=== PATIENT | male | born 1960 | race Caucasian/White ===

== ENCOUNTER 2017-08-24 08:07 | Emergency (ER) | payer BC, OTHER ==
[2017-08-24 08:26] VITALS: BP 149/88
--- NOTE | 2017-08-24 08:51 | UC ---
Upper Extremity HPI - HPI Summary HPI Summary: Kaitlynn De Paz, scribed for attending Elda Garrido MD. Pt is a 56 y/o M who presents to [facility] c/o left wrist pain s/p fall. On August 15 (9 days ago) the pt slipped on rocks and fell on an outstretched left hand. Reports that the wrist "got bent back" during fall. Has been taking Ibuprofen and applying ice to the injury. Associated pain is moderate, ranked 6/ 10 on triage and aggravated by applying pressure (trying to get up from sitting ) and with movement. Notes mild swelling, beginning 2 days after fall, which did not require he remove his wedding band. Denies any paresthesia or weakness in the hand. Denies any other injuries as a result of the fall and has no prior injuries to the left wrist. Pt is ambidextrous, using his right hand to write and for sports, with his left being used for eating and many daily activities. Confirms he has a PCP. Patient medications and allergies reviewed this visit. - History of Current Complaint Chief Complaint: UCUpperExtremity Stated Complaint: WRIST INJURY Time Seen by Provider: 08/24/17 08:46 Hx Obtained From: Patient Onset/Duration: Still Present, Other - Fell 9 days ago Severity Currently: Moderate Pain Intensity: 6 Pain Scale Used: 0-10 Numeric Location Of Pain: Is Discrete @ - Left wrist Aggravating Factor(s): Movement, Other - Pressure Associated Signs And Symptoms: Positive: Swelling Related History: Occupational Injury, Other: - Ambidextrous - Allergies/Home Medications Allergies/Adverse Reactions: Allergies Allergy/AdvReac Type Severity Reaction Status Date / Time Prosthetic in ear Allergy See Comment Uncoded 08/24/17 08:30 PMH/Surg Hx/FS Hx/Imm Hx - Additional Past Medical History Additional PMH: PMHx: DVT Negative PMHx: HTN, COPD, DM, Thyroid disease, Asthma Previously Healthy: Yes Other History Of: Negative For: HIV, Hepatitis B, Hepatitis C, Anticoagulant Therapy - Surgical History Surgical History: Yes Surgery Procedure, Year, and Place: LEFT LEG-DVT. RIGHT EAR - Family History Known Family History: Positive: Cardiac Disease, Hypertension - Social History Alcohol Use: Daily Alcohol Amount: 1-2 GLASSES OF WINE Substance Use Type: None Smoking Status (MU): Never Smoked Tobacco - Immunization History Most Recent Influenza Vaccination: FALL 2016 Review of Systems Constitutional: Negative Skin: Other - Mild swelling Eyes: Negative ENT: Negative Respiratory: Negative Cardiovascular: Negative Gastrointestinal: Negative Genitourinary: Negative Motor: Negative Neurovascular: Negative Musculoskeletal: Arthralgia - L wrist pain Neurological: Negative Psychological: Negative All Other Systems Reviewed And Are Negative: Yes - Comments Additional Review of Systems Comments: NEGATIVE: Paresthesia and weakness Physical Exam - Summary Physical Exam Summary: Vital Signs Reviewed: Yes A+Ox3, no distress Eyes: Conjunctiva Clear ENT: Hearing grossly normal neck: supple Respiratory: Positive: No respiratory distress, No accessory muscle use Cardiovascular: skin color reflect adequate perfusion Musculoskeletal Exam: STRAUSS x 4 without difficulty + flex/ext elbow + pronate/ supinate left elbow + flex/ext wrist no snuff box pain no tenderness carpals, metacarpals, phalanges mild discomfort medial dorsum wrist with direct palp Neurological: Positive: Alert, ambulatory without difficulty + thumb up, a ok, finger spread, finger cross + gross sensation Psychological: Positive: Normal Response To Family Skin: Positive: no rash, no ecchymosis, no edema Triage Information Reviewed: Yes Vital Signs: Initial Vital Signs Temp 97.1 F 08/24/17 08:22 Pulse 67 08/24/17 08:22 Resp 18 08/24/17 08:22 BP 149/88 08/24/17 08:22 Pulse Ox 100 08/24/17 08:22 Diagnostics - Radiology Wrist XR Xray Interpretation: No Acute Changes - NO ACUTE OSSEOUS INJURY. IF SYMPTOMS PERSIST, RECOMMEND REPEAT IMAGING. Physician reviewed this radiology report. Radiology Interpretation Completed By: Radiologist Upper Extremity Course/Dx - Course Course Of Treatment: Patient medications and allergies reviewed this visit. Blood pressure noted and patient informed to follow up with PCP. Pt with left wrist pain s/p fall 1 week ago. discomfort will full extension and flexion of wrist pain dorsum, medial aspect. no edema. no abraison. motrin/apap. ice. splint. sports med f/u - Differential Dx/Diagnosis Provider Diagnoses: left wrist sprain Discharge - Sign-Out/Discharge Documenting (check all that apply): Patient Departure - Discharge - Discharge Plan Condition: Stable Disposition: HOME Patient Education Materials: Wrist Sprain (ED) Referrals: [facility] [Provider Group] Darci Lynch MD [Primary Care Provider] - 08/28/17 (Call for follow up on Monday or Monday. ) Additional Instructions: -apply ice (20 min at a time) 2 times a day for swellnig or pain --Okay to alternate ibuprofen (Advil, Motrin) 600mg and Tylenol every 3 hours for pain. Take with food. Do NOT take for more than 4-5 days. - wear splint as much as possible until your follow-up appointment - Contact your primary care provider or the sports medicine provider to schedule a follow-up appointment on Monday or Monday - you have also been given a referral to physical therapy. Okay to schedule a follow-up for ongoing pain - Billing Disposition and Condition Condition: STABLE Disposition: Home
--- NOTE | 2017-08-24 08:51 | RAD ---
HISTORY: pain s/p fall COMPARISONS: None VIEWS: 3, Frontal, lateral, and oblique views of the left wrist FINDINGS: BONE DENSITY: Normal. BONES: There is no displaced fracture. JOINTS: There is no arthropathy. ALIGNMENT: There is no dislocation. SOFT TISSUES: Unremarkable. OTHER FINDINGS: None. IMPRESSION: NO ACUTE OSSEOUS INJURY. IF SYMPTOMS PERSIST, RECOMMEND REPEAT IMAGING.
== END 2017-08-24 09:47 | disposition home or self-care (01) ==
LOC: UCEAST 08:07
DX: S63.502A Unspecified sprain of left wrist, initial encounter (principal); Z91.048 Other nonmedicinal substance allergy status; W19.XXXA Unspecified fall, initial encounter; Y92.9 Unspecified place or not applicable
CPT/HCPCS: 99211; G0463

== ENCOUNTER 2018-09-08 08:07 | Emergency (ER) | payer BC ==
--- NOTE | 2018-09-08 08:19 | ED ---
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 He was lying in bed sleeping when he suddenly began to feel severe abd pain. He rates his pain intensity a 7/10. 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 He mentions that he was able to urinate this morning and has not taken any medication at home for the pain. He also reports intermittent nausea but denies any vomiting. No alleviating or aggravating factors noted. 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 - History of Current Complaint Stated Complaint: SEVERE ABDOMINAL PAIN RIGHT SIDE PER PT Hx Obtained From: Patient Onset/Duration: Sudden Onset, Lasting Hours, Still Present Timing: Constant, Lasting Hours Severity Initially: Severe Severity Currently: Severe Pain Intensity: 7 Pain Scale Used: 0-10 Numeric Location: Discrete At: RLQ Aggravating Factor(s): Nothing Alleviating Factor(s): Nothing Associated Signs And Symptoms: Positive: Nausea. Negative: Fever, Vomiting - Allergies/Home Medications Allergies/Adverse Reactions: Allergies Allergy/AdvReac Type Severity Reaction Status Date / Time Prosthetic in ear Allergy See Comment Uncoded 09/08/18 08:11 Home Medications: Home Medications Neomycin/Polymyxin B/Hydrocort [Ijakguwa-Hcnttcfec-Bv Ear Susp] 4 drop RIGHT EAR QID 09/08/18 [History Confirmed 09/08/18] PMH/Surg Hx/FS Hx/Imm Hx Endocrine/Hematology History: Denies: Hx Anticoagulant Therapy, Hx Diabetes, Hx Thyroid Disease Cardiovascular History: Denies: Hx Congestive Heart Failure, Hx Deep Vein Thrombosis, Hx Hypertension , Hx Myocardial Infarction, Hx Pacemaker/ICD Respiratory History: Denies: Hx Asthma, Hx Chronic Obstructive Pulmonary Disease (COPD), Hx Lung Cancer, Hx Pneumonia, Hx Pulmonary Embolism GI History: Reports: Other GI Disorders - Hernia Denies: Hx Gall Bladder Disease, Hx Gastrointestinal Bleed, Hx Ulcer, Hx Urosepsis History: Denies: Hx Kidney Stones, Hx Renal Disease Neurological History: Denies: Hx Dementia, Hx Migraine, Hx Seizures, Hx Transient Ischemic Attacks (TIA) Psychiatric History: Denies: Hx Anxiety, Hx Depression, Hx Schizophrenia, Hx Bipolar Disorder - Surgical History Surgery Procedure, Year, and Place: LEFT LEG-DVT. RIGHT EAR Infectious Disease History: No Infectious Disease History: Denies: Hx Hepatitis, Traveled Outside the [place] in Last 30 Days - Family History Known Family History: Positive: Cardiac Disease, Hypertension - Social History Alcohol Use: Daily Alcohol Amount: 1-2 GLASSES OF WINE Substance Use Type: Reports: None Smoking Status (MU): Never Smoked Tobacco Review of Systems Negative: Fever Positive: Nausea. Negative: Vomiting All Other Systems Reviewed And Are Negative: Yes Physical Exam - Summary Physical Exam Summary: Appearance: The patient is well-nourished, diaphoretic, and in obvious distress. Skin: The skin is warm and dry and skin color reflects adequate perfusion. HEENT: The head is normocephalic and atraumatic. The pupils are equal and reactive. The conjunctivae are clear and without drainage. Nares are patent and without drainage. Mouth reveals moist mucous membranes and the throat is without erythema and exudate. The external ears are intact. The ear canals are patent and without drainage. The tympanic membranes are intact. Neck: The neck is supple with full range of motion and non-tender. There are no carotid bruits. There is no neck vein distension. Respiratory: Chest is non-tender. Lungs are clear to auscultation and breath sounds are symmetrical and equal. Cardiovascular: Heart is regular rate and rhythm. There is no murmur or rub auscultated. There is no peripheral edema and pulses are symmetrical and equal. Abdomen: The abdomen is soft. There is mild RLQ tenderness. There are normal bowel sounds heard in all four quadrants and there is no organomegaly palpated. Musculoskeletal: There is no back tenderness noted. Extremities are non-tender with full range of motion. There is good capillary refill. There is no peripheral edema or calf tenderness elicited. Neurological: Patient is alert and oriented to person, place and time. The patient has symmetrical motor strength in all four extremities. Cranial nerves are grossly intact. Deep tendon reflexes are symmetrical and equal in all four extremities. Psychiatric: The patient has an appropriate affect and does not exhibit any anxiety or depression. Triage Information Reviewed: Yes Vital Signs On Initial Exam: Initial Vitals Temp Pulse Resp BP Pulse Ox 97.7 F 52 15 129/80 100 09/08/18 08:08 09/08/18 08:08 09/08/18 08:08 09/08/18 08:08 09/08/18 08:08 Vital Signs Reviewed: Yes Diagnostics - Vital Signs Vital Signs Temp Pulse Resp BP Pulse Ox 09/08/18 08:08 97.7 F 52 15 129/80 100 - Laboratory Result Diagrams: 09/08/18 08:38 09/08/18 08:38 Lab Statement: Any lab studies that have been ordered have been reviewed, and results considered in the medical decision making process. - CT CT A/P CT Interpretation Completed By: Radiologist Summary of CT Findings: 1. THERE IS A 7 MM OBSTRUCTIVE CALCULUS AT THE RIGHT URETEROPELVIC JUNCTION. THE RIGHT. KIDNEY IS EDEMATOUS. NO PERIRENAL FLUID COLLECTION OR STRANDING IS IDENTIFIED. 2. MILD PROSTAMEGALY (5.1 CM). 3. BILATERAL INGUINAL HERNIA REPAIR. ED Physician has reviewed this report. Re-Evaluation - Re-Evaluation First Eval Re-Evaluation Time: 10:40 Comment: Imaging and lab results discused with pt. Second Eval Re-Evaluation Time: 12:35 - imaging results discussed with pt again. Abdominal Pain Male Course/Dx - Course Course Of Treatment: Mr. Peoples presented with the sudden onset of right flank pain while lying in bed this morning. He was able to urinate subsequently without issue. He was mildly nauseated a couple of times but no vomiting. He' s been moving bowels normally. His labs are okay and a CT of his abdomen showed a 7 mm UPJ stone. His urine was equivocal with 1+ white blood cells, 2+ red blood cells and no bacteria. We do not have urology on-call today and I discussed the situation with Mr. Peoples and his . One option is to transfer him for immediate care. The other option was to give him antibiotics and try to get him through the weekend until he can be taken care of by the urologist here in town. He chose that option and assures me that he will return if his pain becomes uncontrollable or he develops a fever or any other symptoms. He was given IV Cipro here in the emergency department and discharged with a prescription for that. - Diagnoses Provider Diagnoses: Kidney stone Discharge - Sign-Out/Discharge Documenting (check all that apply): Patient Departure - discharge Patient Received Moderate/Deep Sedation with Procedure: No - Discharge Plan Condition: Stable Disposition: HOME Prescriptions: Ciprofloxacin TAB* [Cipro Tab*] 500 mg PO BID #20 tab HYDROcodone/ACETAMIN 5-325 MG* [[place] 5-325 TAB*] 1 tab PO Q6H PRN #20 tab MDD 4 PRN Reason: Pain Tamsulosin CAP* [Flomax CAP*] 0.4 mg PO DAILY #7 cap Patient Education Materials: Kidney Stones (ED) Referrals: Ameya Blackwell MD [Medical Doctor] - 2 Days Darci Lynch MD [Primary Care Provider] - 2 Days Additional Instructions: Ibuprofen is recommended for pain management. Please follow up with PCP and Urologist within 2 days. Return to ED for any new or worsening symptoms. - Billing Disposition and Condition Condition: STABLE Disposition: Home - Attestation Statements Document Initiated by Justineibgeorge: Yes Documenting Scribe: John Clements Provider For Whom Scribe is Documenting (Include Credential): Hermna Wills MD Scribe Attestation: John De Paz, scribed for Herman Wills MD on 09/08/18 at 1747. Scribe Documentation Reviewed: Yes Provider Attestation: The documentation as recorded by the John haley accurately reflects the service I personally performed and the decisions made by , Herman Wills MD Status of Scribe Document: Viewed
[2018-09-08] MEDS ORDERED: Ondansetron INJ* 2 MG/ML VIAL IV ONE (08:29)
[2018-09-08] MEDS ORDERED: NS 0.9% 1000 ML** 1,000 ML IV ONE (08:29)
[2018-09-08] MEDS ORDERED: Ketorolac INJ* 30 MG/ML 1 ML VIAL IV PUSH ONE (08:29)
[2018-09-08 08:45] LABS: ABS Basophils 0.1 10^3/ul (0-0.2); ABS Eosinophils 0.4 10^3/ul (0-0.6); ABS Lymphocytes 1.1 10^3/ul (1.0-4.8); ABS Monocytes 0.4 10^3/ul (0-0.8); ABS Neutrophils 2.9 10^3/ul (1.5-7.7); Eosinophil % 7.8 %; Hematocrit 49 % (42-52); Hemoglobin 16.6 g/dL (14.0-18.0); Lymphocyte % 22.8 %; Mean Corpuscular HGB Conc 34 g/dL (31-36); Mean Corpuscular Hemoglobin 31 pg (27-31); Mean Corpuscular Volume 90 fL (80-94); Mean Platelet Volume 8.2 fL (7.4-10.4); Platelet Count 167 10^3/uL (150-450); Red Blood Count 5.38 10^6 /uL (4.18-5.48); Red Cell Distribution Width 13 % (10-15); White Blood Count 4.9 10^3/uL (3.5-10.8)
[2018-09-08 09:03] LABS: Albumin 4.2 g/dL (3.2-5.2); Albumin/Globulin Ratio 1.7 (1-3); BUN/Creatinine Ratio 15.8 (8-20); C Reactive Protein 3.03 mg/L (<8.01); Calcium 9.8 mg/dL (8.6-10.3); EGFR African American 91.5 (>60); EGFR Non-African American 75.6 (>60); Globulin 2.5 g/dL (2-4); Potassium 4.4 mmol/L (3.5-5.0); Total Bilirubin 0.4 mg/dL (0.2-1.0); Total Protein 6.7 g/dL (6.4-8.9)
--- OUTSIDE RECORDS SUMMARY | 2018-09-08 09:05 | XMS REPORT | Continuity of Care Document ---
:1960 External Reference #:[id number] Author Name Irving Camarena M.D. Address [address] [place] [address] Care Team Providers Name Role Phone Darci Lynch M.D. Primary Care Physician Unavailable Payers Date Identification Numbers Payment Provider Subscriber Policy Number: [id number] Frazee Plan Lani Villegas PayID: [id number] [address] [place] [address] Problems Active Problems Provider Date Allergy Onset: Nuclear senile cataract Irving Camarena M.D. Onset: 03/16/2016 Presbyopia Irving Camarena M.D. Onset: 03/16/2016 Migraine with typical aura Irving Camarena M.D. Onset: 03/30/2017 Myopia Irving Camarena M.D. 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 ETOH Use Occasionally consumes alcohol Tobacco Use Start: Unknown Patient has never smoked Recreational Drug Use Denies Drug Use Smoking Status Reviewed: 08/31/18 Patient has never smoked Allergies, Adverse Reactions, Alerts Description No Known Drug Allergies Medications Description No Active Medications Procedures Date Code Description Status 03/30/2017 33609 Est Patient Comprehensive Exam Completed 03/16/2016 54133 Determination Of Refractive State Completed 03/16/2016 24304 Est Patient Comprehensive Exam Completed 12/13/2013 96343 Determination Of Refractive State Completed 12/13/2013 26875 Est Patient Comprehensive Exam Completed 11/21/2011 51318 Determination Of Refractive State Completed 11/21/2011 97621 Est Patient Comprehensive Exam Completed 08/03/2009 10739 Determination Of Refractive State Completed 08/03/2009 74628 Est Patient Comprehensive Exam Completed 02/16/2007 06100 Determination Of Refractive State Completed 02/16/2007 84468 Est Patient Comprehensive Exam Completed Plan of Treatment 08/31/2018 - Irving Camarena M.D.H25.13 Age-related nuclear cataract, bilateralComments:Smoking can increase the risk of developing or worsening any eye related disease, as well as affect your overall health. If you are a smoker , we strongly recommend that you quit.If you are not a smoker, we strongly recommend that you do not start. You have been diagnosed with cataracts. If you are happy with your vision as it is now, then we will see you at your next scheduled appointment. If you feel like your vision is getting worse before your scheduled appointment, please call Cari at [phone].Follow up:1 Year Follow Up You can expect to have your eyes dilated at your next visit. If Dr. Camarena orders any additional testing, it may require extra time. We recommend that you bring sunglasses, as dilationdrops often make you light sensitive until they wear off. We always recommend you bring someone to drive you home if you are uncomfortable driving with your eyes dilated. If you have any questions before your next visit, feel free to call our office at .G43.109 Migraine with aura, not intractable, without status [id number] [id number] Myopia, bilateral
--- OUTSIDE RECORDS SUMMARY | 2018-09-08 09:05 | XMS REPORT | Continuity of Care Document ---
:1960 External Reference #:[id number] Author Name Leticia Gutierrez NP Address [address] [place] [address] Care Team Providers Name Role Phone Darci Lynch Care Team Information Commissions Specialist Unavailable Darci Lynch Primary Care Physician Unavailable Payers Date Identification Numbers Payment Provider Subscriber Policy Number: [id number] [employer] Plan Lani Villegas Group Number: [id number] [address] PayID: [id number] [place] [address] Problems Active Problems Provider Date Benign prostatic hypertrophy without outflow Darci Lynch M.D. Onset: 08/2007 obstruction Acute upper respiratory infection Darci Lynch M.D. Onset: 02/11/2011 Adult health examination Darci Lynch M.D. Onset: 08/22/2011 Impacted cerumen Darci Lynch M.D. Onset: 08/22/2011 Rosacea Darci Lynch M.D. Onset: 08/22/2011 Hearing loss Darci Lynch M.D. Onset: 08/22/2011 Varicose veins of lower extremity Darci Lynch M.D. Onset: 08/22/2011 Lipoma of skin Darci Lynch M.D. 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 Onset: 2014 lower extremity Thrombophlebitis of superficial veins of lower Darci Lynch M.D. Onset: extremity Wrist joint pain Darci Lynch M.D. Onset: 08/29/2017 Vertigo of central origin Darci Lynch M.D. Onset: 03/22/2018 Neoplasm of uncertain behavior of skin Darci Lynch M.D. Onset: 03/22/2018 Family History Date Family Member(s) Observation Comments Father due to Lung Cancer () Mother Heart Disease Mother Osteoarthritis Mother Gastroesophageal Reflux Disease (GERD) First Brother Arthritis First Sister Breast Cancer Social History Type Date Description Comments Sex Unknown Diet Diet is healthy and well balanced Tobacco Use Start: Unknown Nonsmoker ETOH Use Consumes 1 glass of wine per day Tobacco Use Start: Unknown Patient has never smoked Smoking Status Reviewed: 10/31/16 Patient has never smoked Exercise Type/Frequency Exercises regularly Current Allergies, Adverse Reactions, Alerts Description No Known Drug Allergies Medications Active Medications SIG Qnty Indications Ordering Provider Date Neomycin/Polymyxin/Hy 4 drops right 10ml H60.8x1 Leticia Gutierrez, 2018 drocortisone (Otic) ear 4 times [employer] per day 7-10 3.5-46097-6 days Suspension Calcium 1 PO qd Family Medicine 07/24/2008 600mg Tablets [facility] Multivitamin And 1 PO qd 100units Thom Bales, 02/11/2005 Minerals M.D. Fish Oil 1 by mouth Unknown 1200mg every day Capsules DR History Medications Physical Therapy treatment and Darci Donnelly 09/28/2017 - evaluation left wrist Ayaan LynchDSrinivasan 12/07/2017 pain Prednisone 2 t by mouth every 13tabs L23.7 Mallory 10/31/2016 - 20mg day x 4days, [facility] 11/10[facility] Tablets by mouth every day x4 Afnp-C d, 1/2 tab by mouth x 2 days and d/c take with food Physical Therapy treatment and M25.532 Mallory 02/22/2016 - evaluation l wrist Jorgeorf, 03/15/2016 pain , suspect Afnp-C tendonitis Lovenox 1 injection [id number] 10units Darci Donnelly 09/08/2014 - 80mg/0.8ML Cris M.DSrinivasan 04/29/2015 Solution Lovenox 1 injection [id number] 10units Darci Donnelly 04/01/2014 - 80mg/0.8ML Cris M.DSrinivasan 04/01/2014 Solution Enoxaparin Sodium inject 0.8 6units Darci T. 04/01/2014 - milliliters Viviana Lynch 04/08/2014 80mg/0.8ML Solution subcutaneously every 12 hours (has incase of emergency) Warfarin Sodium 1 1/2 by mouth every 45tabs Darci GarySrinivasan 04/01/2014 - 5mg day or as directed Viviana Lynch 04/29/2015 Tablets Physical Therapy evaluate and treat 719.41 Alexandra Harris, 03/31/2014 - right shoulder pain [employer] 07/11/2014 Naproxen 1 by mouth twice a 60tabs 719.41 Alexandra Harris, 03/31/2014 - 500mg day with food [employer] 05/19/2014 Tablets Metronidazole apply to affected 45gm Darci VegaSrinivasan 01/24/2014 - 0.75% area QHS prn Viviana Lynch 02/21/2016 Cream Prednisone 2 po qd x 3d, then 1 13tabs 692.6 Stacy Aly 09/12/2013 - 20mg po qd x3 d and 1/2 po Viviana Willoughby 03/31/2014 Tablets x 3 d take with food Doxycycline Hyclate 2 tabs po once 12caps Darci Donnelly 08/02/2013 - Viviana Lynch 09/12/2013 100mg Capsules Neomycin/Polymyxin/H 3-4 drops to ears tid 1bottle 380.10 Aaron Bianchi, 04/12 - ydrocortisone for 1 week Viviana 08/02/2013 3.5-34192-4 Solution Metronidazole apply to affected 45gm Darci Vega. 08/22/2011 - 0.75% area QHS sonnyn Viviana Lynch 09/12/2013 Cream Naproxen 1 po bid prn pain 60tabs 719.41 Serene Mata, 04/28/2011 - 500mg Afnp-C 08/22/2011 Tablets take with food Naproxen Sodium 1 tab bid w/ food prn 60tabs 719.41 Serene Mata, 2011 - 500mg Afnp-C 04/28/2011 Tablets ER 24HR Physical Therapy treatment and 719.41 Serene Mata, 04/28/2011 - evaluation of left Afnp-C 05/07/2011 shoulder pain Amoxicillin/Potassiu 1 po bid 20tabs Darci Donnelly 02/11/2011 - m Clavulanate Viviana Lynch 04/28/2011 875-125mg Tablets Fish Oil Ultra 2 PO qd Thom J. 04/19/2010 - 1000mg Viviana Bales 03/22/2018 Capsules Amoxicillin/Clavulan 1 po bid 20tabs 461.1 Paolo Islas 04/19/2010 - ate Potassium Viviana Wesley 02/11/2011 500-125mg Tablets Loratadine-D 24HR 1 po qd prn 5tabs 461.1 Paolo Islas 04/19/2010 - Viviana Wesley 04/10/2013 10-240mg Tablets ER 24HR Naproxen 1 po bid prn pain 40tabs Darci Donnelly 03/05/2010 - 500mg Viviana Lynch 02/11/2011 Tablets Physical Therapy please evaluate and Mallory 12/09/2009 - treat for l galdino Boateng, 01/23/2010 tendonitis Afnp-C Cortisporin 2gtts tid x 5-7 1Bottle 380.4 Yoana Gallo, 10/25/2008 - 1% Otic days [facility] 12/09/2009 Solution Nasonex 2 sprays/nostril/day 1units Yoana Gallo, 10/25/2008 - 50mcg/Act [facility] 08/02/2013 Suspension Claritin 1 po qd 7units Yoana Gallo, 10/25/2008 - 5mg Chewtabs [facility] 02/11/2011 Bactrim DS 1 po bid x 14 days 28tabs Darci TSrinivasan 08/04/2008 - 800-160 Agusto Lynch.DSrinivasan 10/25/2008 Tablets Levaquin 1 po qd 10tabs Darci TSrinivasan 07/24/2008 - 500mg Ayaan LynchDSrinivasan 08/04/2008 Tablets Zithromax 2 po qd today , then 6Tabs Darci T. 07/14/2008 - 250mg 1 po qd times 4 Ayaan LynchDSrinivasan 07/24/2008 Tablets Amoxicillin 1 po tid 30tabs 382.9 Paolo Islas 05/27/2008 - 500mg Viviana Wesley 07/14/2008 Tablets Physical Therapy treatment and 727.05 Paolo Islas 05/07/2008 - evaluation of left Viviana Wesley 07/14/2008 thumb tenosynovitis Vosol HC 4-5 gtts into each 1Bottle Mallory 04/17/2007 - ear tid x 7 days [facility], 04/24/2007 Afnp-C Levaquin 1 PO qd 10tabs 682.9 Mateusz Roshan 10/31/2006 - 500mg Viviana Bruner 11/10/2006 Tablets Cortisporin Otic 4-5 QTTS In L Ear 10ml 380.4 Yoana Gallo, 10/28/2006 - Soln Canal tid X 5D [employer] 04/17/2007 [facility] Apply bid prn 1Tube 455.3 Yoana Gallo, 08/17/2006 - 0.5%;3 % [employer]ICE 05/07/2008 Cream Nitroglycerin 2% apply tid to 60gm Darci Donnelly 01/25/2006 - Ointment affected area Viviana Lynch 05/14/2007 Proctocort 1 pr bid 28units Mallory 01/02/2006 - [facility], 10/31/2006 Suppositor Afnp-C Cortisporin Otic 4-5 gtts into 1Bottle 380.4 Yoana Gallo, 12/15/2005 - Susp affected ear bid - [employer]ICE 05/08/2006 tid for 3-5D Physical Therapy treatment and Darci Donnelly 11/18/2005 - evaluation RT elbow Viviana Lynch 05/08/2006 pain--tennis elbow Naproxen 1 po bid with food 60tabs Darci Donnelly 10/21/2005 - 500mg Viviana Lynch 05/08/2006 Tablets Medrol Dosepack as directed 1units Darci Donnelly 09/24/2005 - 4mg Viviana Lynch 10/21/2005 Fish Oil 1 PO qd Thom Warren 02/11/2005 - 1000mg Viviana Bales 04/19/2010 Lotrisone Cream Apply Sparingly To 30gm Mallory 11/24/2004 - Affected Area bid [facility], 12/08/2004 Afnp-C Biaxin XL 2 po qd 20units Thom Warren 04/08/2003 - 500mg Viviana Bales 04/18/2003 Sulamyd 2 gtts affected eye q 1Bottle Herman CampbellSrinivasan 04/04/2003 - Ophth Soln hrs w/a until clear, Viviana Santiago 04/14/2003 then cont 1-2 days longer Lamisil 1 po qd 30units Herman Rojas 04/04/2003 - 250mg Viviana Santiago 02/11/2005 Lamisil Cream apply to affected 15GMS Herman SSrinivasan 03/06/2003 - 1% area bid Viviana Santiago 04/17/2003 Mentax apply bid to rash for 15G Thom J. 01/27/2003 - Cream Cream 2-4 wks Viviana Bales 02/26/2003 Zithromax 2 tabs day 1 6units Serene Adolfo, 04/19/2002 - 250mg 1 Afnp-C 04/24/2002 tab qd days 2 thru 5 Quiafenisen one bid 20units Serene Adolfo, 04/19/2002 - 600mg Afnp-C 04/29/2002 Gwen 1 po qd 10units Yoana Gallo, 03/16/2001 - 180mg [employer]ICE 03/26/2001 Naprosyn 1 bid with food 40tabs Darci TSrinivasan 12/23/2000 - 500mg Tabs Viviana Lynch 02/11/2005 Motrin 1 po tid prn 60units Yoana Gallo, 05/02/2000 - 600mg [employer]ICE 05/12/2000 Doxycycline 1 PO bid 20units Mallory 03/21/2000 - 100mg [place], 03/31/2000 Afnp-C Chiropractic Evaluation And Herman Rojas 03/16/2000 - Treatments Treatment Of Viviana Santiago 05/15/2000 Low Back Pain Doxycycline 1 PO bid 14units Herman Rojas 02/23/2000 - 100mg Viviana Santiago 03/01/2000 Zithromax 2 Tabs Day 1 11units Yoana Gallo, 11/01/1999 - 250mg 1 [employer]ICE 11/17/1999 Tab qd Days 2 Thru 10 Duratuss 1 PO bid prn Head 8units Yoana Gallo, 11/01/1999 - Congestion [employer]ICE 03/16/2000 Gwen 1 PO qd 10units Mateusz OnealSrinivasan 09/22/1999 - 180mg Viviana Bruner 10/02/1999 Zithromax 2 Tabs Day 1 6units Mateusz A. 09/22/1999 - 250mg 1 Viviana Bruner 10/02/1999 Tab qd Days 2 Thru 5 Doxycycline 1 PO bid 20units Herman Rojas 04/16/1999 - 100mg Viviana Santiago 04/26/1999 Motrin 1 PO tid prn 60units Serene Manninge, 03/17/1999 - 600mg Afnp-C 03/31/1999 Flexeril 1 PO tid prn Muscle 30tabs Serene Montesigne, 03/17/1999 - 10mg Tabs Spasm Afnp-C 03/31/1999 Zithromax 2 Tabs Day 1 6tabs Franky Grider 12/30/1997 - 250mg Tabs 1 Viviana Delvalle 01/04/1998 Tab qd Days 2 Thru 5 Donnatol One Q6H prn Abd 18ungordon Kuo 02/20/1997 - Tablets Carlyn Barnard M.D. 07/03/1997 Motrin 1 PO tid prn 60units Herman Rojas 01/27/1997 - 600mg Viviana Santiago 01/27/1997 Lodine 1 PO bid prn 50units Franky Grider 01/27/1997 - 400mg Viviana Delvalle 02/16/1997 Nasalcort Use as Directed 1ungordon Rojas 10/25/1996 - Viviana Santiago 04/06/1998 Medications Administered in Office Medication SIG Qnty Indications Ordering Provider Date Injection Subcutaneous Or Darci Lynch M.D. 04/01/2014 Intramuscular Injection Immunizations CPT Code Status Date Vaccine Lot # [id number] Given 11/24/2017 Influenza Vac, Quadriv[place], [place] [id number] Given 03/15/2016 Tdap Tetanus, W Pertussis [id number] Given 02/01/2013 DO Not Use Split Influenza Virus Vaccine [id number] Given 02/11/2005 Td Immunization, For Use In Individuals 7 Years Or [id number] Older [id number] Given 02/11/2005 DO Not Use Split Influenza Virus Vaccine [id number] Vital Signs Date Vital Result Comment 09/04/2018 9:36am BP Systolic 100 mmHg BP Diastolic 60 mmHg Heart Rate 56 /min Body Temperature 98.3 F Respiratory Rate 16 /min Height 69.25 inches 5'9.25" measured 03/22/18 Weight 158.00 lb BMI (Body Mass Index) 23.2 kg/m2 03/22/2018 8:21am BP Systolic 128 mmHg BP Diastolic 60 mmHg Heart Rate 66 /min Body Temperature 98.2 F Respiratory Rate 16 /min Height 69.25 inches 5'9.25" measured 03/22/18 Weight 162.38 lb BMI (Body Mass Index) 23.8 kg/m2 12/07/2017 9:38am BP Systolic 118 mmHg BP Diastolic 78 mmHg Heart Rate 60 /min Body Temperature 97.5 F Height 69 inches 5'9" Weight 161.56 lb BMI (Body Mass Index) 23.9 kg/m2 09/28/2017 2:42pm BP Systolic 104 mmHg BP Diastolic 60 mmHg Heart Rate 56 /min Body Temperature 98.6 F Respiratory Rate 16 /min Height 69 inches 5'9" Weight 161.50 lb BMI (Body Mass Index) 23.8 kg/m2 08/29/2017 2:11pm BP Systolic 104 mmHg BP Diastolic 70 mmHg Heart Rate 68 /min Body Temperature 97.9 F Respiratory Rate 16 /min Height 69 inches 5'9" Weight 160.38 lb BMI (Body Mass Index) 23.7 kg/m2 10/31/2016 10:17am BP Systolic 112 mmHg BP Diastolic 64 mmHg Heart Rate 60 /min Body Temperature 98.3 F Respiratory Rate 16 /min Height 69 inches 5'9" Weight 158.00 lb BMI (Body Mass Index) 23.3 kg/m2 03/15/2016 10:33am BP Systolic 104 mmHg BP Diastolic 70 mmHg Heart Rate 56 /min Body Temperature 97.9 F Respiratory Rate 16 /min Height 69 inches 5'9" Weight 168.00 lb BMI (Body Mass Index) 24.8 kg/m2 02/22/2016 11:05am BP Systolic 94 mmHg BP Diastolic 54 mmHg Heart Rate 78 /min Body Temperature 97.6 F Height 68.75 inches 5'8.75" Measured 08/02/13 Weight 168.50 lb BMI (Body Mass Index) 25.1 kg/m2 04/29/2015 1:43pm BP Systolic 100 mmHg BP Diastolic 60 mmHg Heart Rate 60 /min Body Temperature 97.9 F Respiratory Rate 16 /min Height 68.75 inches 5'8.75" Measured 08/02/13 Weight 162.00 lb BMI (Body Mass Index) 24.1 kg/m2 07/11/2014 8:14am BP Systolic 94 mmHg BP Diastolic 62 mmHg Heart Rate 68 /min Body Temperature 97.6 F Respiratory Rate 16 /min Height 68.75 inches 5'8.75" Measured 08/02/13 Weight 159.00 lb BMI (Body Mass Index) 23.6 kg/m2 04/08/2014 1:58pm BP Systolic 100 mmHg BP Diastolic 60 mmHg Heart Rate 68 /min Body Temperature 97.8 F Respiratory Rate 16 /min Height 68.75 inches 5'8.75" Measured 08/02/13 Weight 163.38 lb BMI (Body Mass Index) 24.3 kg/m2 03/31/2014 1:20pm BP Systolic 122 mmHg BP Diastolic 64 mmHg Heart Rate 72 /min Body Temperature 98.4 F Respiratory Rate 16 /min Height 68.75 inches 5'8.75" Measured 08/02/13 Weight 165.25 lb BMI (Body Mass Index) 24.6 kg/m2 09/12/2013 9:01am BP Systolic 122 mmHg BP Diastolic 70 mmHg Heart Rate 58 /min Body Temperature 97.9 F Respiratory Rate 18 /min Height 68.75 inches 5'8.75" Measured 08/02/13 Weight 161.00 lb BMI (Body Mass Index) 23.9 kg/m2 08/02/2013 3:18pm BP Systolic 112 mmHg BP Diastolic 78 mmHg Heart Rate 56 /min Body Temperature 98.1 F Respiratory Rate 16 /min Height 68.75 inches 5'8.75" Measured 08/02/13 Weight 159.25 lb BMI (Body Mass Index) 23.7 kg/m2 04/12/2013 2:04pm BP Systolic 110 mmHg BP Diastolic 64 mmHg Heart Rate 68 /min Body Temperature 98.0 F Respiratory Rate 16 /min Height 68.75 inches 5'8.75" Weight 168.00 lb BMI (Body Mass Index) 25.0 kg/m2 04/10/2013 3:22pm BP Systolic 110 mmHg BP Diastolic 62 mmHg Heart Rate 68 /min Body Temperature 97.6 F Respiratory Rate 16 /min O2 % BldC Oximetry 99 % Height 68.75 inches 5'8.75" Weight 168.00 lb BMI (Body Mass Index) 25.0 kg/m2 08/22/2011 3:17pm BP Systolic 110 mmHg BP Diastolic 66 mmHg Heart Rate 68 /min Height 68.75 inches 5'8.75" Weight 161.00 lb BMI (Body Mass Index) 23.9 kg/m2 Right Visual Acuity Distance 20/25 With Glasses Left Visual Acuity Distance 20/40 04/28/2011 8:58am BP Systolic 112 mmHg BP Diastolic 78 mmHg Heart Rate 64 /min Body Temperature 97.7 F Height 68.75 inches 5'8.75" Weight 169.00 lb BMI (Body Mass Index) 25.1 kg/m2 02/11/2011 3:09pm BP Systolic 90 mmHg BP Diastolic 60 mmHg Heart Rate 60 /min Body Temperature 98.2 F Height 68.75 inches 5'8.75" Weight 173.00 lb BMI (Body Mass Index) 25.7 kg/m2 04/19/2010 12:36pm BP Systolic 110 mmHg BP Diastolic 70 mmHg Heart Rate 72 /min Body Temperature 98.8 F Height 68.75 inches 5'8.75" Weight 170.00 lb BMI (Body Mass Index) 25.3 kg/m2 03/05/2010 3:17pm BP Systolic 130 mmHg BP Diastolic 90 mmHg Heart Rate 76 /min Body Temperature 98.7 F Respiratory Rate 15 /min Height 68.75 inches 5'8.75" Weight 175.00 lb BMI (Body Mass Index) 26.0 kg/m2 12/09/2009 1:48pm BP Systolic 116 mmHg BP Diastolic 72 mmHg Heart Rate 66 /min Body Temperature 98.8 F Height 68.75 inches 5'8.75" Weight 173.00 lb BMI (Body Mass Index) 25.7 kg/m2 10/25/2008 9:59am BP Systolic 100 mmHg BP Diastolic 70 mmHg Heart Rate 60 /min Body Temperature 98.3 F Weight 161.00 lb 08/18/2008 12:05pm BP Systolic 106 mmHg BP Diastolic 68 mmHg Heart Rate 60 /min Body Temperature 98.9 F Height 68.75 inches 5'8.75" Weight 160.00 lb BMI (Body Mass Index) 23.8 kg/m2 08/04/2008 3:31pm BP Systolic 108 mmHg BP Diastolic 60 mmHg Body Temperature 98.6 F Respiratory Rate 16 /min Height 68.75 inches 5'8.75" Weight 161.00 lb BMI (Body Mass Index) 23.9 kg/m2 07/24/2008 10:40am BP Systolic 100 mmHg BP Diastolic 64 mmHg Heart Rate 48 /min Body Temperature 98.1 F Height 68.75 inches 5'8.75" Weight 164.00 lb BMI (Body Mass Index) 24.4 kg/m2 07/14/2008 1:14pm BP Systolic 110 mmHg BP Diastolic 60 mmHg Heart Rate 64 /min Body Temperature 98.5 F Height 68.75 inches 5'8.75" Weight 164.00 lb BMI (Body Mass Index) 24.4 kg/m2 06/03/2008 10:28am BP Systolic 102 mmHg BP Diastolic 70 mmHg Heart Rate 60 /min Body Temperature 97.8 F Height 68.75 inches 5'8.75" Right Visual Acuity Distance 20/70 Wo Correction Left Visual Acuity Distance 20/50 Wo Correction 05/27/2008 2:59pm BP Systolic 90 mmHg BP Diastolic 80 mmHg Heart Rate 66 /min Body Temperature 97.6 F Weight 169.00 lb 05/07/2008 11:26am BP Systolic 110 mmHg BP Diastolic 78 mmHg Heart Rate 52 /min Body Temperature 97.7 F Respiratory Rate 12 /min Weight 172.00 lb 05/14/2007 3:37pm BP Systolic 100 mmHg BP Diastolic 66 mmHg Heart Rate 48 /min Body Temperature 98.1 F Height 68.5 inches 5'8.50" Weight 169.00 lb BMI (Body Mass Index) 25.3 kg/m2 04/17/2007 1:23pm BP Systolic 110 mmHg BP Diastolic 60 mmHg Heart Rate 72 /min Respiratory Rate 13 /min Height 69 inches 5'9" 11/01/2006 11:46am Body Temperature 97.8 F Respiratory Rate 18 /min Height 69 inches 5'9" 10/31/2006 3:37pm BP Systolic 100 mmHg BP Diastolic 72 mmHg Heart Rate 64 /min Body Temperature 98.8 F Height 69 inches 5'9" 10/28/2006 2:03pm BP Systolic 100 mmHg BP Diastolic 80 mmHg Heart Rate 64 /min Body Temperature 98.3 F Height 69 inches 5'9" Weight 168.00 lb BMI (Body Mass Index) 24.8 kg/m2 08/17/2006 3:26pm BP Systolic 104 mmHg BP Diastolic 54 mmHg Heart Rate 76 /min Body Temperature 98.8 F Height 69 inches 5'9" Weight 161.00 lb BMI (Body Mass Index) 23.8 kg/m2 05/08/2006 7:57pm BP Systolic 100 mmHg BP Diastolic 60 mmHg Heart Rate 72 /min Body Temperature 98.4 F Height 69 inches 5'9" Weight 170.00 lb BMI (Body Mass Index) 25.1 kg/m2 01/25/2006 2:11pm BP Systolic 114 mmHg BP Diastolic 68 mmHg Heart Rate 66 /min Height 69 inches 5'9" Weight 174.00 lb BMI (Body Mass Index) 25.7 kg/m2 01/02/2006 10:38am BP Systolic 102 mmHg BP Diastolic 62 mmHg Heart Rate 72 /min Respiratory Rate 16 /min Height 69 inches 5'9" 12/15/2005 2:25pm Heart Rate 60 /min Body Temperature 98.3 F Height 69 inches 5'9" Weight 168.00 lb BMI (Body Mass Index) 24.8 kg/m2 12/09/2005 3:50pm BP Systolic 100 mmHg BP Diastolic 70 mmHg Heart Rate 60 /min Body Temperature 97.4 F Height 69 inches 5'9" Weight 171.00 lb BMI (Body Mass Index) 25.2 kg/m2 10/21/2005 8:37am BP Systolic 100 mmHg BP Diastolic 60 mmHg Heart Rate 66 /min Height 69 inches 5'9" Weight 165.00 lb BMI (Body Mass Index) 24.4 kg/m2 09/24/2005 9:26am BP Systolic 104 mmHg BP Diastolic 64 mmHg Heart Rate 60 /min Height 69 inches 5'9" Weight 164.00 lb BMI (Body Mass Index) 24.2 kg/m2 02/11/2005 10:27am BP Systolic 104 mmHg BP Diastolic 70 mmHg Heart Rate 68 /min Height 69 inches 5'9" Weight 164.00 lb BMI (Body Mass Index) 24.2 kg/m2 Right Visual Acuity Distance 20/25 Left Visual Acuity Distance 20/20 11/24/2004 1:04pm BP Systolic 122 mmHg BP Diastolic 78 mmHg Heart Rate 66 /min Body Temperature 98.7 F Height 69 inches 5'9" Weight 164.00 lb BMI (Body Mass Index) 24.2 kg/m2 04/08/2003 11:18am BP Systolic 110 mmHg BP Diastolic 70 mmHg Heart Rate 60 /min Body Temperature 96.9 F Height 69 inches 5'9" Weight 172.00 lb BMI (Body Mass Index) 25.4 kg/m2 04/04/2003 2:13pm BP Systolic 120 mmHg BP Diastolic 80 mmHg Body Temperature 97.6 F Height 69 inches 5'9" Weight 170.00 lb BMI (Body Mass Index) 25.1 kg/m2 03/06/2003 3:45pm BP Systolic 108 mmHg BP Diastolic 78 mmHg Heart Rate 56 /min Body Temperature 97.4 F Height 69 inches 5'9" Weight 166.00 lb BMI (Body Mass Index) 24.5 kg/m2 01/27/2003 10:24am BP Systolic 100 mmHg BP Diastolic 60 mmHg Heart Rate 64 /min Height 69 inches 5'9" Weight 168.00 lb BMI (Body Mass Index) 24.8 kg/m2 04/19/2002 9:37am BP Systolic 110 mmHg BP Diastolic 60 mmHg Heart Rate 68 /min Body Temperature 97.5 F Height 69 inches 5'9" Weight 166.00 lb BMI (Body Mass Index) 24.5 kg/m2 03/16/2001 1:17pm Body Temperature 97.8 F Height 69 inches 5'9" Weight 174.00 lb BMI (Body Mass Index) 25.7 kg/m2 12/23/2000 11:14am Height 69 inches 5'9" Weight 168.00 lb BMI (Body Mass Index) 24.8 kg/m2 05/02/2000 4:25pm BP Systolic 102 mmHg BP Diastolic 68 mmHg Heart Rate 72 /min Height 69 inches 5'9" Weight 167.00 lb BMI (Body Mass Index) 24.7 kg/m2 03/21/2000 3:33pm BP Systolic 112 mmHg BP Diastolic 78 mmHg Body Temperature 97.3 F Height 69 inches 5'9" Weight 166.00 lb BMI (Body Mass Index) 24.5 kg/m2 03/16/2000 6:03pm BP Systolic 124 mmHg BP Diastolic 72 mmHg Heart Rate 80 /min Height 69 inches 5'9" Weight 169.00 lb BMI (Body Mass Index) 25.0 kg/m2 02/23/2000 1:44pm BP Systolic 112 mmHg LA, SM Cuff BP Diastolic 76 mmHg LA, SM Cuff Body Temperature 97.4 F Oral Height 69 inches 5'9" Weight 168.00 lb BMI (Body Mass Index) 24.8 kg/m2 11/01/1999 6:58pm Body Temperature 97.4 F Height 69 inches 5'9" Weight 168.00 lb BMI (Body Mass Index) 24.8 kg/m2 09/22/1999 8:54am BP Systolic 110 mmHg LA, SM Cuff BP Diastolic 60 mmHg LA, SM Cuff Heart Rate 60 /min Irreg Body Temperature 97.2 F Tymp Height 69 inches 5'9" Weight 164.00 lb BMI (Body Mass Index) 24.2 kg/m2 07/16/1999 4:19pm BP Systolic 110 mmHg BP Diastolic 70 mmHg Heart Rate 72 /min Body Temperature 96.8 F Height 69 inches 5'9" Weight 162.00 lb BMI (Body Mass Index) 23.9 kg/m2 04/16/1999 3:36pm BP Systolic 134 mmHg BP Diastolic 86 mmHg Body Temperature 98.0 F Weight 169.00 lb 03/17/1999 2:03pm BP Systolic 92 mmHg BP Diastolic 60 mmHg Weight 170.00 lb 12/30/1997 11:10am Body Temperature 98.8 F Weight 165.00 lb 07/03/1997 1:55pm BP Systolic 110 mmHg LA SM Cuff BP Diastolic 72 mmHg LA SM Cuff Heart Rate 64 /min Reg Body Temperature 97.9 F Height 69 inches 5'9" Weight 165.00 lb 02/20/1997 12:00am Body Temperature 98.4 F Height 69.00 inches 01/27/1997 12:00am Body Temperature 97.2 F Height 69.00 inches 5'9" Weight 170.00 lb Results Test Date Facility Test Result H/L Range Note Comprehensive Metabolic 03/22/2018 [facility]) Sodium 136 mEq/L 134-149 Prof Potassium 3.8 mEq/L 3.6-5.5 Chloride 105 mEq/L 94-112 Carbon Dioxide 27 mEq/L 21-32 Glucose 83 mg/dL 70-105 BUN 15 mg/dL 6-26 Creatinine 0.8 mg/dL 0.6-1.4 BUN/Creat Ratio 18.8 CALC 8.0-36.0 Calcium 9.3 mg/dL 8.6-10.2 Total Protein 6.5 g/dL 6.4-8.3 Albumin 4.5 g/dL 3.8-5.5 Globulin 2.0 g/dL 2.0-4.8 A/G Ratio 2.3 CALC 0.6-2.3 Alk. Phosphatase 54 U/L 22-95 Alt (SGPT) 20 U/L 7-35 Ast (Sgot) 17 U/L 5-34 Total Bilirubin 1.0 mg/dL 0.2-1.3 GFR Non- >60 ml/min/1.73m^ >=60 GFR >60 ml/min/1.73m^ >=60 Lipid Profile 03/22/2018 [facility]) Cholesterol 229 mg/dL High 120-200 Triglycerides 44 mg/dL 30-200 HDL Cholesterol 71 mg/dL High 30-70 LDL (Calculated) 149 CALC High 0-129 VLDL Cholesterol 9 mg/dL 0-50 HDL Risk Factor 3.2 CALC 0.0-4.4 Laboratory test 03/22/2018 Davey Amos([facility]) PSA 0.8 ng/mL 0.0-4.0 finding CBC Electronic [facility]ma 03/22/2018 [facility] Finn([facility]) WBC 3.9 x10^3/UL Low 4.0-10.0 RBC 5.31 x10^6/UL 3.93-6.00 HGB 16.4 g/dL 12.0-17.0 HCT 49 % 35-50 MCV 91.3 fL 80.0-95.0 MCH 30.9 pg 25.6-32.2 MCHC 33.8 g/dL 32.2-36.0 RDW-CV 12.5 % 11.6-14.4 PLT 165 x10^3/UL 163-400 MPV 10.1 fL 9.4-12.4 Simon# 2.25 x10^3/UL 1.56-6.13 Lymph# 1.02 x10^3/UL Low 1.18-3.74 [place]# 0.29 x10^3/UL 0.24-0.82 Eos # 0.3 x10^3/UL 0.0-0.5 Baso # 0.02 x10^3/UL 0.01-0.08 Simon% 57.5 % 34.0-70.0 Lymph % 26.1 % 20.0-52.0 [place]% 7.4 % 5.0-12.0 Eos% 8.2 % High 0.7-7.0 Baso% 0.5 % 0.1-1.2 Ua - Non Micro ([facility]) 03/22/2018 [facility] Appearance Clear (607)- - Color Yellow Glucose, Urine ([facility]ma/CMC/CTX) Negative Bilirubin Negative Ketones Negative SP Grav 1.010 Blood Negative PH 5.5 Protein Negative Urobil 0.2 Nitrite Negative Leukocytes ([facility]/CMC/Centrex) Negative Laboratory test 05/27/2016 [facility] [place] Culture/Sensi SEE RESULT 1, 2 finding BELOW Ua - Non Micro 03/15/2016 [facility] Medicine Appearance clear (Fma) (607)- - Color yellow Glucose, Urine (Fma/CMC/CTX) neg Bilirubin neg Ketones neg SP Grav <=1.005 Blood neg PH 6.0 Protein neg Urobil 0.2 Nitrite neg Leukocytes (Fma/CMC/Centrex) neg Laboratory 03/15/2016 [facility] Prostate-Specific Ag, 0.9 0.0-4.0 3, 4 test finding 1447 [facility] Serum ng/[place] [address] (607)- - CBC With 03/15/2016 [facility] WBC 6.6 3.4-10.8 Differential/P 1447 [facility] x10E3/[place] [address] (607)- - RBC 5.42 x10E6/uL 4.14-5.80 Hemoglobin 16.6 g/dL 12.6-17.7 Hematocrit 48.7 % 37.5-51.0 MCV 90 fL 79-97 MCH 30.6 pg 26.6-33.0 MCHC 34.1 g/dL 31.5-35.7 RDW 13.5 % 12.3-15.4 Platelets 187 x10E3/uL 150-379 Neutrophils 76 % Lymphs 15 % Monocytes 5 % Eos 4 % Basos 0 % Immature Cells TNP Neutrophils (Absolute) 4.9 x10E3/uL 1.4-7.0 Lymphs (Absolute) 1.0 x10E3/uL 0.7-3.1 Monocytes(Absolute) 0.4 x10E3/uL 0.1-0.9 Eos (Absolute) 0.3 x10E3/uL 0.0-0.4 Baso (Absolute) 0.0 x10E3/uL 0.0-0.2 Immature Granulocytes 0 % Immature Grans (Abs) 0.0 x10E3/uL 0.0-0.1 NRBC [facility] Hematology Comments: [facility] Lipid Panel 03/15/2016 [facility] Cholesterol, Total 218 mg/dL High [phone] [place] [address] (607)- - Triglycerides 75 mg/dL 0-149 HDL Cholesterol 68 mg/dL >39 VLDL Cholesterol Joe 15 mg/dL 5-40 LDL Cholesterol Calc 135 mg/dL High 0-99 Comment: [facility] Metabolic Panel (14), 03/15/2016 [facility] Glucose, Serum 74 mg/dL 65-99 Comprehensive [address] [place] [address] (607)- - BUN 16 mg/dL 6-24 Creatinine, Serum 0.76 mg/dL 0.76-1.27 eGFR If NonAfricn Am 101 mL/min/1.73 >59 eGFR If Africn Am 117 mL/min/1.73 >59 BUN/Creatinine Ratio 21 High 9-20 Sodium, Serum 140 mmol/L 134-144 Potassium, Serum 4.2 mmol/L 3.5-5.2 Chloride, Serum 98 mmol/L 96-106 Carbon Dioxide, Total 24 mmol/L 18-29 Calcium, Serum 9.3 mg/dL 8.7-10.2 Protein, Total, Serum 6.7 g/dL 6.0-8.5 Albumin, Serum 4.3 g/dL 3.5-5.5 Globulin, Total 2.4 g/dL 1.5-4.5 A/G Ratio 1.8 1.1-2.5 Bilirubin, Total 0.5 mg/dL 0.0-1.2 Alkaline Phosphatase, S 55 IU/L 39-117 Ast (Sgot) 18 IU/L 0-40 Alt (SGPT) 23 IU/L 0-44 Laboratory test 03/23/2015 [facility] Inr (Fma) 2.2 2.0-3.0 finding (607)- - Laboratory test 02/20/2015 [facility] Inr (Fma) 2.2 2.0-3.0 finding (607)- - Laboratory test 01/23/2015 [facility] Inr (Fma) 2.3 2.0-3.0 finding (607)- - Laboratory test 01/09/2015 [facility] Inr (Fma) 2.3 2.0-3.0 finding (607)- - Laboratory test 01/05/2015 [facility] Inr (Fma) 1.4 Low 2.0-3.0 finding (607)- - Laboratory test 12/06/2014 [facility] Inr (Fma) 2.6 2.0-3.0 finding (607)- - Laboratory test 11/15/2014 [facility] Inr (Fma) 2.9 2-3 finding (607)- - Laboratory test 11/01/2014 [facility] Inr (Fma) 1.9 Low 2-3 finding (607)- - Laboratory test 10/16/2014 [facility] Inr (Fma) 3.0 2.0-3.0 finding (607)- - Laboratory test 10/02/2014 [facility] Inr (Fma) 2.5 2-3 finding (607)- - Laboratory test 09/27/2014 [facility] Inr (Fma) 2.6 2.0-3.0 finding (607)- - Laboratory test 09/25/2014 [facility] Inr (Fma) 5.1 High 2.0-3.0 finding (607)- - Laboratory test 09/19/2014 [facility] Inr (Fma) 2.9 0.9-1.1 finding (607)- - Laboratory test 09/15/2014 [facility] Inr (Fma) 2.0 2.0-3.0 finding (607)- - Laboratory test 09/13/2014 [facility] Inr (Fma) 1.7 Low 2.0-3.0 finding (607)- - Laboratory test 09/11/2014 [facility] Inr (Fma) 1.3 Low 2-3 finding (607)- - Laboratory test 06/20/2014 [facility] Inr (Fma) 2.9 2.0-3.0 finding (607)- - Laboratory test 05/30/2014 [facility] Inr (Fma) 2.5 2.0-3.0 finding (607)- - Laboratory test 05/16/2014 [facility] Inr (Fma) 2.5 2.0-3.0 finding (607)- - Laboratory test 05/06/2014 [facility] Inr (Fma) 2.2 2.0-3.0 finding (607)- - Laboratory test 04/29/2014 [facility] Inr (Fma) 1.8 Low 2-3 finding (607)- - Laboratory test 04/22/2014 [facility] Inr (Fma) 1.7 Low 2.0-3.0 finding (607)- - Laboratory test 04/15/2014 [facility] Inr (Fma) 2.2 2-3 finding (607)- - Laboratory test 04/11/2014 [facility] Inr (Fma) 2.1 2.0-3.0 finding (607)- - Laboratory test 04/07/2014 [facility] Inr (Fma) 2.6 2.0-3.0 finding (607)- - Laboratory test 04/04/2014 [facility] Inr (Fma) 1.2 Low 2.0-3.0 finding (607)- - Laboratory test 04/01/2014 [facility] Inr (Fma) 1.0 Low 2.0-3.0 finding (607)- - CBC 08/26/2013 [facility] WBC 5.0 x10E3/uL 4.3-10.9 5 [address] [place] [address] [phone] RBC 5.48 x10E6/uL 4.70-6.20 Hemoglobin 16.9 g/dL 13.0-17.0 Hematocrit 49.4 % 39.0-50.0 MCV 90.1 fl 82.0-98.0 MCH 30.8 pg 27.5-33.5 MCHC 34.2 g/dL 32.0-36.0 RDW 12.9 % 11.5-14.5 Platelet Count 165 x10E3/uL 130-400 MPV 11.0 fl 8.6-12.6 Segmented Neutrophils 55.7 % 44.0-74.0 Lymphocytes 26.5 % 15.0-45.0 Monocytes 8.0 % 2.0-13.0 Eosinophils 9.4 % High 0.0-6.0 Basophils 0.4 % 0.0-2.0 Neutrophil Absolute 2.8 x10E3/uL 1.4-7.0 Lymphocytes Absolute 1.3 x10E3/uL 1.0-3.4 Monocyte Absolute 0.4 x10E3/uL 0.2-1.0 Eosinophil Absolute 0.5 x10E3/uL 0.0-0.5 Basophil Absolute 0.0 x10E3/uL 0.0-0.2 Comprehensive Metabolic 08/26/2013 [facility] Glucose 84 mg/dL 70-[address] [place] [phone] BUN 15 mg/dL 5-21 Creatinine, Serum 0.89 mg/dL 0.60-1.30 Sodium 138 mmol/L 136-146 Potassium 4.2 mmol/L 3.5-5.3 Chloride 100 mmol/L 98-110 Carbon Dioxide 33 mmol/L High 20-32 Albumin 4.3 g/dL 3.5-4.7 Protein, Total 7.0 g/dL 6.4-8.3 Calcium 9.0 mg/dL 8.4-10.4 Alkaline Phosphatase 65 U/L 10-118 Sgot (Ast) 19 U/L 3-40 SGPT (Alt) 24 U/L 7-50 Bilirubin, Total 0.90 mg/dL 0.30-1.20 Lipid Panel 08/26/2013 [facility] Cholesterol, 210 mg/dL Abnormal <[address] [place] [phone] Triglycerides 45 mg/dL <150 HDL Cholesterol 69 mg/dL High 40-60 Chol/HDL Cholesterol 3.0 6 LDL Cholesterol, Calc. 132 mg/dL Abnormal 7 LDL/HDL Cholesterol 1.9 8 Laboratory test 08/26/2013 [facility] PSA, Total 0.60 ng/ml 0.00-4.00 [address] [place] [phone] Egfr 08/26/2013 [facility] Estimated GFR (CALCULATE (Calculated) [address] [place] [address] [place] [address] [phone] Egfr >60 10 Egfr, -Swazi >60 11 Ua - Non Micro (Fma) 08/02/2013 Family Medicine Appearance yellow (607)- - Color clear Glucose neg Bilirubin neg Ketones neg SP Grav 1.020 Blood neg PH 6.5 Protein neg Urobil 0.2 Nitrite neg Leukocytes (Fma/CMC/Centrex) neg CBC 09/01/2011 [facility] WBC 4.3 x10E3/uL 4.3-10.9 12 [address] [place] [address] [phone] RBC 5.50 x10E6/uL 4.70-6.20 Hemoglobin 17.1 g/dL High 13.0-17.0 Hematocrit 49.3 % 39.0-50.0 MCV 89.6 fl 82.0-98.0 MCH 31.1 pg 27.5-33.5 MCHC 34.7 g/dL 32.0-36.0 RDW 12.7 % 11.5-14.5 Platelet Count 160 x10E3/uL 130-400 MPV 11.6 fl High 6.5-10.5 Segmented Neutrophils 55.0 % 44.0-74.0 Lymphocytes 28.4 % 15.0-45.0 Monocytes 7.0 % 2.0-13.0 Eosinophils 8.9 % High 0.0-6.0 Basophils 0.7 % 0.0-2.0 Neutrophil Absolute 2.4 x10E3/uL 1.4-7.0 Lymphocytes Absolute 1.2 x10E3/uL 1.0-3.4 Monocyte Absolute 0.3 x10E3/uL 0.2-1.0 Eosinophil Absolute 0.4 x10E3/uL 0.0-0.5 Basophil Absolute 0.0 x10E3/uL 0.0-0.2 Comprehensive Metabolic 09/01/2011 [facility] Glucose 87 mg/dL 70-100 [address] [place] [address] [phone] BUN 15 mg/dL 5-21 Creatinine, Serum 1.03 mg/dL 0.60-1.30 Sodium 141 mmol/L 136-146 Potassium 4.0 mmol/L 3.5-5.3 Chloride 104 mmol/L 98-110 Carbon Dioxide 30 mmol/L 20-32 Albumin 4.2 g/dL 3.5-4.7 Protein, Total 6.7 g/dL 6.4-8.3 Calcium 9.2 mg/dL 8.4-10.4 Alkaline Phosphatase 55 U/L 10-118 Sgot (Ast) 17 U/L 3-40 SGPT (Alt) 19 U/L 7-50 Bilirubin, Total 0.80 mg/dL 0.30-1.20 Lipid Panel 09/01/2011 [facility] Cholesterol, Total 195 mg/dL <[address] [place] [phone] Triglycerides 55 mg/dL <150 HDL Cholesterol 63 mg/dL High 40-60 Chol/HDL Cholesterol 3.1 13 LDL Cholesterol, Calc. 121 mg/dL Abnormal 14 LDL/HDL Cholesterol 1.9 15 Laboratory test 09/01/2011 [facility] PSA, Total 0.60 ng/ml 0.00-4.00 16 finding [address] [place] [address] [phone] Egfr 09/01/2011 [facility] Estimated GFR (CALCULATE (Calculated) [facility] D) [place] [address] [phone] Egfr >60 17 Egfr, -Swazi >60 18 Ua - Non Micro (Fma) 08/22/2011 Family Medicine Appearance yellow (607)- - Color clear Glucose, Urine (Fma/CMC/CTX) neg Bilirubin neg Ketones neg SP Grav 1.015 Blood neg PH 6.5 Protein neg Urobil 0.2 Nitrite neg Leukocytes (Fma/CMC/Centrex) neg Surgical Pathology 07/31/2008 [facility] 19 Pathology <SEE NOTE> Laboratory test 06/03/2008 [facility] PSA 0.7 ng/ml 0.0- 20, 21 finding [facility] 4.[address] [place] [address] [phone] Comprehensive 06/03/2008 [facility] Glucose 96 mg/dL 70-1 Metabolic [facility] [address] [place] [address] [phone] BUN 12 mg/dL 5-21 Creatinine, Serum 1.0 mg/dL 0.6-1.5 Sodium 141 mmol/L 136-146 Potassium 4.8 mmol/L 3.5-5.3 Chloride 104 mmol/L 98-110 Carbon Dioxide 30 mmol/L 20-32 Albumin 4.3 g/dL 3.5-4.7 Protein, Total 6.6 g/dL 6.4-8.3 Calcium 9.5 mg/dL 8.4-10.4 Alkaline Phosphatase 50 U/L 10-118 Sgot (Ast) 21 U/L 3-40 SGPT (Alt) 28 U/L 7-50 Bilirubin, Total 0.60 mg/dL 0.30-1.20 Lipid Profile 06/03/2008 [facility] Cholesterol, Total 198 mg/dL 120-200 22 [address] [place] [address] [phone] HDL Cholesterol 63 mg/dL High 40-60 LDL Cholesterol, Calc. 127 mg/dL AB <130 23 Triglycerides 42 mg/dL 24 LDL/HDL Cholesterol 2.0 25 Chol/HDL Cholesterol 3.1 26 GFR, Calculated 06/03/2008 [facility] GFR (Calculated) >60 27 [address] [place] [address] [phone] Ua - Non Micro (Fma) 06/03/2008 Family Medicine Appearance VLEAR (307)- - Color OTHER Glucose, Urine (Fma/CMC/CTX) NEG Bilirubin NEG Ketones NEG SP Grav 1.010 Blood NEG PH 7.0 Protein NEG Urobil 0.2 Nitrite NEG Leukocytes (Fma/CMC/Centrex) NEG Laboratory test 06/01/2007 [facility] PSA 0.5 ng/ml 0.0-4.0 28, 29 finding [address] [place] [address] [phone] Comprehensive 06/01/2007 [facility] Glucose 75 mg/dL 70-100 Metabolic [address] [place], [place] [address] [phone] BUN 13 mg/dL 5-21 Creatinine, Serum 1.1 mg/dL 0.6-1.5 Sodium 140 mmol/L 136-146 Potassium 4.2 mmol/L 3.5-5.3 Chloride 103 mmol/L 98-110 Carbon Dioxide 28 mmol/L 20-32 Albumin 4.2 g/dL 3.5-4.7 Protein, Total 6.3 g/dL Low 6.4-8.2 Calcium 9.2 mg/dL 8.4-10.4 Alkaline Phosphatase 50 U/L 10-118 Sgot (Ast) 19 U/L 3-40 SGPT (Alt) 17 U/L 7-50 Bilirubin, Total 0.70 mg/dL 0.30-1.20 Laboratory test 06/01/2007 [facility] GFR (Calculated) >60 30 finding [address] [place] [address] [phone] Ua - Non Micro (Fma) 05/14/2007 Family Medicine Appearance CLEAR (607)- - Color YELLOW Glucose, Urine (Fma/CMC/CTX) NEG Bilirubin NEG Ketones NEG SP Grav 1.010 Blood NEG PH 6.5 Protein NEG Urobil 0.2 Nitrite NEG Leukocytes (Fma/CMC/Centrex) NEG Ua - Non Micro (Fma) 05/08/2006 Family Medicine Appearance CLEAR (607)- - Color YELLOW Glucose NEG Bilirubin NEG Ketones NEG SP Grav 1.015 Blood NEG PH 6.0 Protein NEG Urobil 0.2 Nitrite NEG Leukocytes (Fma/CMC/[facility]) NEG Laboratory test 02/11/2005 [facility] PSA 0.5 ng/ml 0.0-4.0 31, 32 finding [address] [place] [address] [phone] TSH (Thyrotropin) 1.400 uIU/ml 0.350-5.500 T-4 Free 1.5 ng/dL 0.8-1.8 Free T-3 3.6 pg/mL 2.3-4.2 Homocysteine 8.44 umol/L 3.70-13.90 GFR (Calculated) >60 33 Comprehensive Metabolic 02/11/2005 [facility] Glucose 87 mg/dL 70-[address] [place] [address] [phone] BUN 19 mg/dL 5-21 Creatinine, Serum 1.0 mg/dL 0.6-1.5 Sodium 138 mmol/L 136-146 Potassium 4.0 mmol/L 3.5-5.3 Chloride 102 mmol/L 98-110 Carbon Dioxide 27 mmol/L 20-32 Albumin 4.4 g/dL 3.5-4.7 Protein, Total 7.0 g/dL 6.4-8.2 Calcium 9.0 mg/dL 8.4-10.4 Alkaline Phosphatase 65 U/L 10-118 Sgot (Ast) 19 U/L 3-30 SGPT (Alt) 21 U/L 7-40 Bilirubin, Total 0.97 mg/dL 0.30-1.20 CBC 02/11/2005 [facility] WBC 4.7 x103 4.3-10.9 [address] [place] [address] [phone] RBC 5.47 x106 4.20-5.60 Hemoglobin 16.8 g/dL 13.0-17.0 Hematocrit 48.9 % 39.0-50.0 MCV 89.5 fl 82.0-98.0 MCH 30.6 pg 27.5-33.5 MCHC 34.2 g/dL 32.0-36.0 RDW 12.6 % 11.5-14.5 Platelet Count 186 x103 130-400 MPV 9.2 fl 6.5-10.5 Segmented Neutrophils 68.2 % 44.0-74.0 Lymphocytes 21.3 % 15.0-45.0 Monocytes 5.5 % 2.0-13.0 Eosinophils 5.0 % 0.0-6.0 Basophils 0.0 % 0.0-2.0 Neutrophil Absolute 3.2 x103 1.4-7.0 Lymphocytes Absolute 1.0 x103 1.0-3.4 Monocyte Absolute 0.3 x103 0.2-1.0 Eosinophil Absolute 0.2 x103 0.0-0.5 Basophil Absolute 0.0 x103 0.0-0.2 Ua - Non Micro (Fma New) 02/11/2005 Family Medicine Appearance CLEAR (607)- - Color YELLOW Glucose NEGATIVE Bilirubin NEGATIVE Ketones NEGATIVE SP Grav 1.010 Blood NEGATIVE PH 5.0 Protein NEGATIVE g/dL Low 6.3-8.1 Urobil 0.2 Nitrite NEGATIVE Leukocytes NEGATIVE Ua - Non Micro (Fma New) 03/06/2003 Family Medicine Appearance CLEAR (607)- - Color DARK YELLOW Glucose NEGATIVE Bilirubin NEGATIVE Ketones TRACE SP Grav >=1.030 Blood NEGATIVE PH 5.0 Protein NEGATIVE Urobil 0.2 Nitrite NEGATIVE Leukocytes NEGATIVE Comprehensive 03/05/2003 [facility] Glucose 80 mg/dL 61.0 - 110.[address] [place] [phone] BUN 17 mg/dL 5.0 - 21.0 Creatinine, Serum 0.9 mg/dL 0.6 - 1.5 Sodium 138 mmol/L 135.0 - 146.0 Potassium 4.1 mmol/L 3.5 - 5.3 Chloride 103 mmol/L 98.0 - 108.0 Carbon Dioxide 30 mmol/L 23.0 - 33.0 Albumin 3.9 g/dL 3.8 - 4.6 Protein, Total 6.9 g/dL 6.2 - 8.0 Calcium 8.8 mg/dL 8.3 - 10.3 Alkaline Phosphatase 73 U/L 45.0 - 120.0 Sgot (Ast) 19 U/L 9.0 - 43.0 SGPT (Alt) 30 U/L 11.0 - 51.0 Bilirubin, Total 0.70 mg/dL 0.2 - 1.3 Lipid Profile 03/05/2003 [facility] Triglycerides 40 mg/dL 23.0 - 253.[address] [place] [address] [phone] Cholesterol, Total 163 mg/dL 120.0 - 200.0 34 HDL Cholesterol 53 mg/dL 40.0 - 60.0 LDL Cholesterol, Calc. 102 mg/dL <130 35 LDL/HDL Cholesterol 1.9 36 Chol/HDL Cholesterol 3.1 37 CBC 03/05/2003 [facility] WBC 4.4 x10*3 4.3 - 10.[address] [place] [phone] RBC 5.23 x10*6 4.2 - 5.6 Hemoglobin 15.8 g/dL 13.0 - 17.0 Hematocrit 47.5 % 39.0 - 50.0 MCV 90.7 fl 82.0 - 98.0 MCH 30.2 pg 27.5 - 33.5 MCHC 33.3 g/dL 32.0 - 36.0 RDW 12.5 % 11.5 - 14.5 Platelet Count 158 x10*3 130.0 - 400.0 MPV 9.6 fl 6.5 - 10.5 Segmented Neutrophils 64.6 % 44.0 - 74.0 Lymphocytes 23.2 % 15.0 - 45.0 Monocytes 6.6 % 2.0 - 13.0 Eosinophils 5.5 % 0.0 - 6.0 Basophils 0.1 % 0.0 - 2.0 Neutrophil Absolute 2.8 x10*3 1.4 - 7.0 Lymphocytes Absolute 1.0 x10*3 1.0 - 3.4 Monocyte Absolute 0.3 x10*3 0.2 - 1.0 Eosinophil Absolute 0.2 x10*3 0.0 - 0.5 Basophil Absolute 0.0 x10*3 0.0 - 0.2 Laboratory test 03/05/2003 [facility] PSA 0.5 ng/ml 0 - 4 38 finding [address] [place], [place] [address] [phone] Laboratory test 07/28/1999 [facility] PSA 0.5 NG/ML 0-4 39 finding Comp Metabolic 07/26/1999 [facility] Albumin 4.0 GM/DL 3.80 - (Fma) (607)- - 5.50 Alkaline Phosphatase 42 U/L 39-130 Bilirubin, Total 0.5 mg/dL 0.2-1.3 BUN 13 mg/dL 10-26 Calcium 8.1 mg/dL 7.4-9.2 Creatinine 1.1 mg/dL 0.6-1.4 Glucose 82 mg/dL 70 - 118 Ast Sgot 18 U/L 9-44 Alt (SGPT) 23 U/L 10-40 Total Protein 6.8 g/dL 6.3-8.1 Sodium 139 mEq/L 134-149 Potassium 4.4 mEq/L 3.6-5.5 Chloride 101 mEq/L 94-112 Co2 29 21-32 Globulin 2.8 2.0-4.8 Albumin / Globulin Ratio 1.4 0.6-2.2 BUN/Creatinin Ratio 11.8 8.0-36 Lipid Profile (a) 07/26/1999 [facility] Cholesterol 177 mg/dL 140 -200 (607)- - Triglyceride 50 mg/dL 30-150 HDL-Chol 47.3 mg/dL 30-70 VLDL 10 mg/dL 0-50 LDL-Calculated 120 0-160 CBC With Diff ([facility]) 07/26/1999 [facility] WBC 4.3 /Hpf 3.6 - 9.6 (607)- - Lymphocytes 23.9 % 20.5 - 51.1 Monocytes 7.6 % 1.7 - 9.3 Granulocytes 68.5 % 42.2 - 75.2 Lymphocytes 1.0 10^3/uL 0.7 - 4.9 Monocytes 0.3 10^3/uL 0.1 - 0.9 Granulocytes 2.9 10^3/uL 1.5 - 7.2 RBC 5.06 /Hpf 3.90 - 5.70 Hemoglobin 16.1 g/dL 12.1 - 17.2 Hematocrit 46.3 % 36.1 - 50.3 Mean Corpuscular Vol 91.5 fl 82.2 - 97.4 Mean Corpuscular Hemaglobin 31.8 pg 27.6 - 33.3 Mean Corpuscular Hemo Concen 34.7 g/dL 33.0 - 34.8 RDW 11.9 % 11.6 - 13.7 Platelets 128 10^3/ul Low 150-400 Mean Platelet Volume 9.0 fl 7.4 - 10.4 Ua - Non Micro (Fma New) 07/16/1999 Family Medicine Appearance CLEAR YELLOW (607)- - SP Grav 1.025 Esterase - Nitrite - pH 5.5 Protein - Glucose - Ketones - Urobil - Bilirubin - Blood - 1 [id number] 2 SEE RESULT BELOW Name: RIGO PEOPLES : [address]: Ronni Gutierrez MD Acct: [id number] Unit: [id number] AGE: 55 Location: [facility] Re05/27/16 SEX: M Status: DEP ER SPEC: [id number] KELLY: 05/27/16-[address] [facility] [address]: Ronni Gutierrez MD REQ: [id number] RECD: 05/27/16-1232 STATUS: CHRISTAL GIBBS DR: Darci Lynch MD [facility] _ SOURCE: LIP SPDESC: ORDERED: Culture Stain COMMENTS: [id number] Procedure Result Reported Site Wound/Misc Gram Stain Final 05/27/16- 1313 ML 2+ Epithelial Cells No Neutrophils Observed No Organisms Seen Wound/Misc Culture Final 05/29/16- 1336 ML Organism 1 NORMAL FINN Quantity 2+ * ML - MAIN LAB (PSC1) . END OF REPORT * ML=Testing performed at Main Lab DEPARTMENT OF PATHOLOGY, [address] [place] [address] Jadon Beckman M.D. Director [facility] # [id number] 3 1 sst 4 Bre ECLIA methodology. According to the [place] U[employer] Association, Serum PSA should decrease and remain at undetectable levels after radical prostatectomy. The AUA defines biochemical recurrence as an initial PSA value 0.2 ng/mL or greater followed by a subsequent confirmatory PSA value 0.2 ng/mL or greater. Values obtained with different assay methods or kits cannot be used interchangeably. Results cannot be interpreted as absolute evidence of the presence or absence of malignant disease. 5 FASTING; 1 SST; 1YELLOW TOP; 1 LAV 6 CHOL/HDL Risk Ratio Levels MALE FEMALE 1/2 X Average 3.4 3.3 Average 5.0 4.4 2 X Average 9.5 7.0 3 X Average 24.0 11.0 7 Optimal under 100 mg/dl Near or above Optimal 100 - 129 mg/dl Borderline High 130 - 159 mg/dl High 160 - 189 mg/dl Very High above 190 mg/dl 8 LDL/HDL Risk Ratio Levels MALE FEMALE 1/2 X Average 1.0 1.5 Average 3.6 3.2 2 X Average 6.3 5.0 3 X Average 8.0 6.1 9 . Serum PSA results should be used only in conjunction with information available from the clinical evaluation of the patient and other diagnostic procedures. Values obtained with different assay methods or kits cannot be used interchangeably. Results obtained using [employer] ICMA methodology. 10 >59 mL/min/1.73m2 11 >59 mL/min/1.73m2 Note: Persistent reduction for 3 months or more in an eGFR <60 mL/min/1.73m2 defines CKD. Patients with eGFR values >=60 mL/min/1.73m2 may also have CKD if evidence of persistent proteinuria is present. Additional information may be found at [email or web address]. 12 FASTING; 2 sst's; 1 lav 13 CHOL/HDL Risk Ratio Levels MALE FEMALE 1/2 X Average 3.4 3.3 Average 5.0 4.4 2 X Average 9.5 7.0 3 X Average 24.0 11.0 14 Optimal under 100 mg/dl Near or above Optimal 100 - 129 mg/dl Borderline High 130 - 159 mg/dl High 160 - 189 mg/dl Very High above 190 mg/dl 15 LDL/HDL Risk Ratio Levels MALE FEMALE 1/2 X Average 1.0 1.5 Average 3.6 3.2 2 X Average 6.3 5.0 3 X Average 8.0 6.1 16 . Serum PSA results should be used only in conjunction with information available from the clinical evaluation of the patient and other diagnostic procedures. Values obtained with different assay methods or kits cannot be used interchangeably. Results obtained using [employer] ICMA methodology. 17 >59 mL/min/1.73m2 18 >59 mL/min/1.73m2 Note: Persistent reduction for 3 months or more in an eGFR <60 mL/min/1.73m2 defines CKD. Patients with eGFR values >=60 mL/min/1.73m2 may also have CKD if evidence of persistent proteinuria is present. Additional information may be found at [email or web address]. 19 ---- RUN DATE: 08/04/08 [facility] NMI LIVE PAGE 1 RUN TIME: 1425 Specimen Inquiry RUN USER: INTERFACE -- Name: RIGO PEOPLES Status: REG REF Re07/31/08 Age/Sex: 47/M Unit#: [id number] Location: [address] [place] [address]. : 56 -- Specimen: [id number] SOUT Spec Date: 07/31/[address]: Reza estevez MD Spec Type: SURGICAL P Received: 08/01/08 Copies to: Darci Delvalle MD SPECIMEN BIOPSY RECTAL POLYP HISTORY POST-OP DIAGNOSIS: Small rectal polyp removed CLINICAL INFORMATION: High risk screening colonoscopy, prior history of c olon polyp 2003 GROSS DESCRIPTION Specimen received in formalin labelled Rigo Peoples, Biopsy Rectal Polyp and consists of one fragment of cruz-lucas tissue measuring 0.3 x 0.2 x 0.2 cm. Submitted entirely, one cassette. DIAGNOSIS Rectum, polyp, biopsy: A. Tubular adenoma. B. No high grade dysplasia or malignancy. Signed Electronically by: MAURO HERNANDEZ 08/04/08 1425 -- -- DEPARTMENT OF PATHOLOGY, [address] [place] [address] [facility] Permit #[id number] Jadon Beckman M.D. Director Mauro Hernandez M.D. Superintendent [employer] sushil -- 20 FASTING; 1S 21 . Serum PSA results should be used only in conjunction with information available from the clinical evaluation of the patient and other diagnostic procedures. Values obtained with different assay methods or kits cannot be used interchangeably. Results obtained using [employer] ICMA methodology. 22 Cholesterol Risk Levels (NIH) Recommended: under 200 mg/dl Borderline : 200-239 mg/dl High Risk : Above 240 mg/dl 23 The National Cholesterol Education Program recommends the following ranges for LDL Cholesterol: Optimal under 100 mg/dl Near or above Optimal 100 - 129 mg/dl Borderline High 130 - 159 mg/dl High 160 - 189 mg/dl Very High above 190 mg/dl 24 Triglyceride Risk Levels: Normal : <150 mg/dl Borderline : 150-199 mg/dl High : 200-499 mg/dl Very High : >500 mg/dl 25 LDL/HDL Risk Ratio Levels MALE FEMALE 1/2 X Average 1.00 1.47 Average 3.55 3.22 2 X Average 6.25 5.03 3 X Average 7.99 6.14 26 CHOL/HDL Risk Ratio Levels MALE FEMALE 1/2 X Average 3.4 3.3 Average 5.0 4.4 2 X Average 9.5 7.0 3 X Average 24.0 11.0 27 mL/min/1.73m2 . Normal Function or Mild Renal Disease, if clinically at risk: >or=60 Moderately decreased: 30 - 59 Severely decreased: 15 - 29 Renal Failure: <15 . Please note that the MDRD equation requires an additional adjustment for -Americans (multiply the GFR result by 1.210). . Glomerular Filtration Rate (GFR) is estimated based on the MDRD equation, which assumes a steady state for creatinine ([facility]ila Int Med 139/2 137-149, 2003), as recommended by the National Kidney Disease Education Program in conjunction with the National Institutes of Health and the National Kidney Foundation. . Clinical conditions in which it may be necessary to measure GFR by using clearance methods include extremes of age and body size, severe malnutrition or obesity, diseases of skeletal muscle, paraplegia or quadriplegia, vegetarian diet, rapidly changing kidney function, and calculation of the dose of potentially toxic drugs that are excreted by the kidneys. 28 FASTING; 2 sst 29 . Serum PSA results should be used only in conjunction with information available from the clinical evaluation of the patient and other diagnostic procedures. Values obtained with different assay methods or kits cannot be used interchangeably. Results obtained using [employer] ICMA methodology. 30 mL/min/1.73m2 . Normal Function or Mild Renal Disease, if clinically at risk: >or=60 Moderately decreased: 30 - 59 Severely decreased: 15 - 29 Renal Failure: <15 . Please note that the MDRD equation requires an additional adjustment for -Americans (multiply the GFR result by 1.210). . Glomerular Filtration Rate (GFR) is estimated based on the MDRD equation, which assumes a steady state for creatinine (Leila Int Med 139/2 137-149, 2003), as recommended by the National Kidney Disease Education Program in conjunction with the National Institutes of Health and the National Kidney Foundation. . Clinical conditions in which it may be necessary to measure GFR by using clearance methods include extremes of age and body size, severe malnutrition or obesity, diseases of skeletal muscle, paraplegia or quadriplegia, vegetarian diet, rapidly changing kidney function, and calculation of the dose of potentially toxic drugs that are excreted by the kidneys. 31 FASTING 32 . Serum PSA results should be used only in conjunction with information available from the clinical evaluation of the patient and other diagnostic procedures. Values obtained with different assay methods or kits cannot be used interchangeably. Results obtained using mLEDaur ICMA methodology. . 33 mL/min/1.73m2 . Normal Function or Mild Renal Disease, if clinically at risk: >or=60 Moderately decreased: 30 - 59 Severely decreased: 15 - 29 Renal Failure: <15 . Please note that the MDRD equation requires an additional adjustment for -Americans (multiply the GFR result by 1.210). . Glomerular Filtration Rate (GFR) is estimated based on the MDRD equation, which assumes a steady state for creatinine (Leila Int Med 139/2 137-149, 2002), as recommended by the National Kidney Disease Education Program in conjunction with the National Institutes of Health and the National Kidney Foundation. . Clinical conditions in which it may be necessary to measure GFR by using clearance methods include extremes of age and body size, severe malnutrition or obesity, diseases of skeletal muscle, paraplegia or quadriplegia, vegetarian diet, rapidly changing kidney function, and calculation of the dose of potentially toxic drugs that are excreted by the kidneys. . 34 Cholesterol Risk Levels (NIH) Recommended: under 200 mg/dl Borderline : 200-239 mg/dl High Risk : Above 240 mg/dl . 35 LDL Cholesterol Risk Levels (NIH) Recommended: under 130 mg/dl Borderline: 131 - 159 mg/dl High Risk: above 160 mg/dl . 36 LDL/HDL Risk Ratio Levels MALE FEMALE 1/2 X Average 1.00 1.47 Average 3.55 3.22 2 X Average 6.25 5.03 3 X Average 7.99 6.14 . 37 CHOL/HDL Risk Ratio Levels MALE FEMALE 1/2 X Average 3.4 3.3 Average 5.0 4.4 2 X Average 9.5 7.0 3 X Average 24.0 11.0 . 38 . Results obtained using Loom MEIA methodology. Serum PSA results should be used only in conjunction with information available from the clinical evaluation of the patient and other diagnostic procedures. Values obtained with different assay methods or kits cannot be used interchangeably. . 39 SERUM LEVELS OF PSA SHOULD NOT BE INTERPRETED ABSOLUTE EVIDENCE OF THE PRESENCE OR ABSENCE OF DISEASE. THE PSA VALUE SHOULD BE USED IN CONJUNCTION WITH OTHER PERTINENT CLINICAL DIAGNOSTIC PROCEDURES. Procedures Date Code Description Status 03/23/2015 18411 Finger Or Heel Stick Completed 02/20/2015 85360 Finger Or Heel Stick Completed 01/23/2015 48234 Finger Or Heel Stick Completed 01/09/2015 38057 Finger Or Heel Stick Completed 01/05/2015 22766 Finger Or Heel Stick Completed 12/06/2014 15261 Finger Or Heel Stick Completed 11/15/2014 72019 Finger Or Heel Stick Completed 11/01/2014 28381 Finger Or Heel Stick Completed 10/16/2014 12288 Finger Or Heel Stick Completed 10/02/2014 39020 Finger Or Heel Stick Completed 09/27/2014 56045 Finger Or Heel Stick Completed 09/25/2014 90694 Finger Or Heel Stick Completed 09/19/2014 51681 Finger Or Heel Stick Completed 09/15/2014 99231 Finger Or Heel Stick Completed 09/13/2014 09094 Finger Or Heel Stick Completed 09/11/2014 82639 Finger Or Heel Stick Completed 06/20/2014 22857 Finger Or Heel Stick Completed 05/30/2014 75619 Finger Or Heel Stick Completed 05/16/2014 49830 Finger Or Heel Stick Completed 05/06/2014 76818 Finger Or Heel Stick Completed 04/29/2014 00871 Finger Or Heel Stick Completed 04/22/2014 12367 Finger Or Heel Stick Completed 04/15/2014 40808 Finger Or Heel Stick Completed 04/11/2014 79027 Finger Or Heel Stick Completed 04/07/2014 06360 Finger Or Heel Stick Completed 04/04/2014 55888 Finger Or Heel Stick Completed 04/01/2014 03006 Finger Or Heel Stick Completed 04/01/2014 42994 Injection Subcutaneous Or Intramuscular Completed 10/10/2013 26302601 Colonoscopy Completed 04/10/2013 40301 Remove Impacted Cerumen Completed 08/22/2011 98678 Vision Test- screening test of visual acuity, Completed quantitative, bila 07/31/2008 04990072 Colonoscopy Completed 05/08/2006 05695 Remove Impacted Cerumen Completed 03/06/2003 79153 Electrocardiogram Complete Completed 07/16/1999 52618 Electrocardiogram Complete Completed 07/03/1997 41860 Electrocardiogram Complete Completed Encounters Type Date Location Provider Dx Diagnosis Office Visit 03/22/2018 [facility] Darci Lynch, Z00.01 Encounter for 8:20a M.D. general adult medical exam w abnormal findings N40.0 Benign prostatic hyperplasia without lower urinry tract symp H81.41 Vertigo of central origin, right ear D48.5 Neoplasm of uncertain behavior of skin Z12.5 Encounter for screening for malignant neoplasm of prostate Office Visit 12/07/2017 9:40a [facility] Office Leta Gorman I83.92 Asymptomatic M.D. varicose veins of left lower extremity I80.02 Phlebitis and thombophlb of superfic vessels of l low extrem Office Visit 10/31/2016 10:00a [facility] Mallory L23.7 Allergic contact [place], Afnp-C dermatitis due to plants, except food Office Visit 03/15/2016 10:20a [facility] Office Darci Lynch, Z00.00 Encntr for M.D. general adult medical exam w/o abnormal findings N40.0 Benign prostatic hyperplasia without lower urinry tract symp Z23 Encounter for immunization Office Visit 02/22/2016 11:00a [facility] Office Mallory M25.532 Pain in left [place], wrist Afnp-C Office Visit 04/29/2015 1:45p [facility] Serene Mata, S39.011A Strain of Afnp-C muscle, fascia and tendon of abdomen, init encntr Office Visit 07/11/2014 8:10a Main Office Darci Lynch, 453.40 DVT/ Embolism M.D. Lower Extremity NOS 454.9 Varicose Veins Lower Extrem Asymptomatic Varicose Veins Office Visit 04/08/2014 2:00p Main Office Darci Lynch, 453.40 DVT/ Embolism Lower M.D. Extremity NOS 451.0 Phlebitis & Thrombophlebitis Superficial Vessels Lower Extre 454.9 Varicose Veins Lower Extrem Asymptomatic Varicose Veins Office Visit 04/01/2014 6:45p Main Office Darci Donnelly 453.40 DVT/Embolism Lower Viviana Lynch Extremity NOS Office Visit 04/01/2014 3:45p Main Office Darci Donnelly V58.61 Anticoagulants Long Viviana Lynch Term (Current) Use Encounter 453.40 DVT/Embolism Lower Extremity NOS Office Visit 03/31/2014 1:15p Main Office Alexandra Harris NP 719.41 Pain Joint Shoulder Region 729.5 Pain In Limb Office Visit 09/12/2013 9:00a [facility] Stacy Aly 692.6 Dermatitis Contact Viviana Willoughby Due To Plants (Except Food) Office Visit 08/02/2013 3:20p Main Office Darci Lynch V70.0 Examination MSrinivasanDSrinivasan General Medical Routine AT Health Care Facility 600.00 hypertrophy benign of prostate without urinary obstruction Office Visit 04/12/2013 2:00p [facility] Aaron Bianchi 380.10 Otitis Externa MSrinivasanDSrinivasan Infective Unspec Office Visit 04/10/2013 3:20p [facility] Mateusz Islas 380.4 Impacted Tarun Bruner M.D. Office Visit 08/22/2011 3:20p Main Office Darci Donnelly V70.0 Examination Viviana Lynch General Medical Routine AT [facility] Care [facility] 600.00 hypertrophy benign of prostate without urinary obstruction 380.4 Impacted Cerumen 695.3 Rosacea 389.9 Hearing Loss Unspec 454.9 Varicose Veins Lower Extrem Asymptomatic Varicose Veins 214.1 Lipoma Other Skin And Subcutaneous Tissue V72.0 Examination Eyes & Vision Office Visit 04/28/2011 9:00a 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 Office Visit 12/09/2009 1:45p Main Office Mallory 726.31 Epicondylitis [place], Medial Afnp-C Office Visit 10/25/2008 10:00a Main Office Yoana Gallo 380.4 Impacted Cerumen [employer]ICE Office Visit 08/18/2008 12:00p Main Office Irving Warren 473.9 Sinusitis Chronic Viviana Covarrubias Unspec Office Visit 08/04/2008 3:10p Main Office Darci Donnelly 461.9 Sinusitis Acute Ayaan LynchDSrinivasan Unspec Office Visit 07/24/2008 10:10a [facility] Darci Donnelly 461.9 Sinusitis Acute Office Cris MSrinivasanDSrinivasan Unspec 465.9 URI Upper Respiratory Infections Acute Unspec Sites Office Visit 07/14/2008 1:10p Main Office Darci Lynch 461.9 Sinusitis Acute M.D. Unspec 465.9 URI Upper Respiratory Infections Acute Unspec Sites Office Visit 06/03/2008 10:20a Main Office Darci Lynch, 600.00 hypertrophy benign M.D. of prostate without urinary obstruction 455.3 Hemorrhoids External W/O Complication V70.0 Examination General Medical Routine AT Health Care Facility Office Visit 05/27/2008 3:00p Main Office Paolo Islas 382.9 Otitis Media Unspec Viviana Wesley Office Visit 05/07/2008 11:10a [facility] Paolo Islas 727.05 Tenosynovitis Hand Viviana Wesley & Wrist Other Office Visit 05/14/2007 3:20p Main Office Darci Donnelly 455.3 Hemorrhoids Cris MSrinivasanD. External W/O Complication 600.00 hypertrophy benign of prostate without urinary obstruction V70.0 Examination General Medical Routine AT Health Care Facility Office Visit 04/17/2007 1:15p [facility] Mallory 380.4 Impacted Tasneem, Afnp-C Cerumen 380.89 Ear External Disorders Other Office Visit 10/31/2006 3:40p Main Office Mateusz Vallecillo2.9 Cellulitis & Franc M.D. Abscess Unspec Site Office Visit 10/31/2006 3:15p Main Office Mateusz Islas 682.9 Cellulitis & Franc, M.D. Abscess Unspec Site Office Visit 10/28/2006 1:15p Main Office Yoana Gallo 380.4 Impacted Cerumen [employer] Office Visit 08/17/2006 3:15p [facility] Yoana Gallo, 455.3 Hemorrhoids [employer] External W/O Complication Office Visit 05/08/2006 7:20p Main Office Darci Donnelly 380.4 Impacted Tarun Lynch M.D. 724.2 Lumbago 600.00 hypertrophy benign of prostate without urinary obstruction V70.0 Examination General Medical Routine AT Health Care Facility Office Visit 01/25/2006 2:10p Main Office Darci Donnelly 569.49 Rectum & Anus Viviana Lynch Disorder Other Office Visit 01/02/2006 10:45a Main Office Mallory 569.49 Rectum & Anus [place], Disorder Other Afnp-C Office Visit 12/15/2005 2:00p [facility] Yoana Gallo, 380.22 Otitis Externa [employer] Other Acute Office Visit 12/09/2005 3:45p [facility] Serene Mata, 380.4 Impacted Cerumen Afnp-C Office Visit 02/11/2005 10:20a Main Office Thom Warren V70.0 Examination Viviana Bales General Medical Routine AT Health Care Facility V04.81 Need For Prophylactic Vaccination & Inoculation/Influenza V06.5 Tetanus Diphtheria (DT) Office Visit 11/24/2004 1:00p Main Office Mallory 782.1 Rash & Other Nonspec [place], Afnp-C Skin Eruption Office Visit 04/08/2003 11:00a Main Office Thom Bales, 473.9 Sinusitis Chronic M.DSrinivasan Unspec Office Visit 04/04/2003 2:00p Main Office Herman Rojas 372.00 Conjunctivitis Acute Viviana Santiago Unspec 782.1 Rash & Other Nonspec Skin Eruption Office Visit 03/06/2003 3:20p Main Office Herman Santiago, 995.3 Allergy Unspec Viviana 782.1 Rash & Other Nonspec Skin Eruption 427.89 Cardiac Dysrhythmia Other V76.41 Screening Malignant Neoplasm Rectum V70.0 Examination General Medical Routine AT Health Care Facility Office Visit 01/27/2003 10:10a [facility] Thom Warren 110.5 Dermatophytosis Body Office Viviana Bales Office Visit 04/19/2002 9:30a [facility] Serene 461.9 Sinusitis Acute Office aSlas Mata Afnp-C Office Visit 03/16/2001 1:15p Main Office ELVA BatistaP Office Visit 12/23/2000 10:50a Main Office Darci Lynch M.D. Office Visit 05/02/2000 4:15p [facility] Yoana Gallo, Office [employer] Office Visit 03/21/2000 3:15p [facility] Mallory Office Leroyligia, Afnp-C Office Visit 03/16/2000 6:10p Main Office Herman Santiago M.D. Office Visit 02/23/2000 1:40p [facility] Herman Rojas Office Viviana Santiago Office Visit 11/01/1999 7:00p Main Office ELVA BatistaP Office Visit 09/22/1999 9:00a [facility] Mateusz Islas Office Viviana Bruner Plan of Treatment 09/04/2018 - Leticia Gutierrez, NPH60.8x1 Other otitis externa, right earNew Medication:Neomycin/Polymyxin/Hydrocortisone (Otic) [id number] - 4 drops right ear 4 times per day 7-10 daysComments:Call ADOLFO if condition changes/ worsens in any wayAllComments:1. Patient has been queried about patient's goals /preferences and functional/lifestyle goals at relevant visits. If relevant, describe: Has been discussed, noted above2. Treatment goals as explainedto the patient: see above3. Are there barriers to meeting treatment goals? Yes If Yes, please describe: Barriers include possible insurance limits, disease process, and difficulty with lifestyle changes4. Self-Management goals as described to the patient: Yes, see above As always, we strongly encourage a healthy diet and making physical activity a part of your every day life. If you have questions about how or where to start, please contact the office.
[2018-09-08 11:35] LABS: Urine Appearance Clear; Urine Bacteria Absent (Absent); Urine Bilirubin Negative (Negative); Urine Blood 2+ (Negative); Urine Color Yellow; Urine Glucose Negative (Negative); Urine Ketones Negative (Negative); Urine Nitrite Negative (Negative); Urine Protein Negative (Negative); Urine Red Blood Cell 3+(>10/hpf) (Absent); Urine Specific Gravity 1.011 (1.010-1.030); Urine Urobilinogen Negative (Negative); Urine White Blood Cell 1+(6-10/hpf) (Absent)
[2018-09-08] MEDS ORDERED: Ciprofloxacin 400MG IVPREMIX(* 400 MG/200 ML BAG IVPB ONE (11:38)
[2018-09-08 12:47] VITALS: BP 110/70
== END 2018-09-08 13:05 | disposition home or self-care (01) ==
LOC: ED 08:07
DX: N20.1 Calculus of ureter (principal); N28.81 Hypertrophy of kidney; N40.1 Benign prostatic hyperplasia with lower urinary tract symptoms; R11.0 Nausea; Z86.718 Personal history of other venous thrombosis and embolism
CPT/HCPCS: 36415; 74176; 80053; 81003; 81015; 83605; 83690; 85025; 86140; 87086; 96361; 96365; 96375; 99283; J0744; J1885; J2405

== ENCOUNTER → 2018-09-12 | Day surgery (SDC) | payer BC ==
--- NOTE | 2018-09-10 20:14 | HP ---
CC: Dr. Lynch * HISTORY AND PHYSICAL: DATE OF PLANNED ADMISSION AND SURGERY: 09/12/18 HISTORY OF PRESENT ILLNESS: Mr. Peoples is a 57-year-old white male who is admitted with a proximal 7 mm right ureteral calculus for cystoscopy and insertion of right ureteral stent and possible right ureteroscopy laser lithotripsy. Mr. Peoples was doing well until about 10 days ago when he had an episode of mild right flank pain. The pain was manageable and resolved spontaneously. Four days prior to this planned admission, he developed an episode of severe right renal colic. There was no associated fever or chills. He presented to the emergency room where he had a noncontrast CT of the abdomen and pelvis. The study showed a 7- mm calculus at the right ureteropelvic junction associated with mild hydronephrosis. No other abnormalities were noted. His urine analysis showed +1 esterase and +3 blood. He was given pain medication and antibiotics. His pain resolved and he was discharged home on Cipro. He has had on and off episodes of mild to moderate right flank pain that typically would respond to pain medications. The patient was evaluated in my office 2 days prior to this admission. His urinalysis was negative. Renal ultrasound showed mild right hydronephrosis with increased echogenicity of the right renal cortex and some irregularity around the right kidney indicating either edema or small degree of extravasation. There were, however, jets noted from both ureteral orifices. The calculus was not well visualized on renal ultrasound. His urine culture from his emergency room visit showed no growth. PAST MEDICAL HISTORY AND SYSTEM REVIEW: He is very healthy. He had 1 episode of DVT about 2 years ago after superficial vein surgery and he was on anticoagulation for about 6 months. The condition resolved and has had no recurrence. He is on no anticoagulation at this time. He had double hernia repair about one year ago that were well tolerated. He is in excellent health. He denies any cardiac or pulmonary diseases or symptoms. He is on no chronic medications and he denies any allergies to medications. He is a nonsmoker. 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 PHYSICAL EXAMINATION GENERAL: Pleasant, healthy, and fit-looking white male who is in no pain. VITAL SIGNS: Blood pressure 100/64, pulse of 60, temperature 97.7. LUNGS: Clear. HEART: Regular and rhythmic, no murmurs. ABDOMEN: Soft. No masses, no tenderness. No CVA tenderness. RECTAL: Deferred to the operating room. IMPRESSION: Recent episode of right renal colic secondary to a 7-mm calculus in the proximal right ureter. PLAN/RECOMMENDATIONS: Plan is for cystoscopy and insertion of right ureteral stent. If the calculus had dropped further down in the ureter and is accessible by ureteroscopy, then ureteroscopy and laser lithotripsy will also be performed. I discussed the above plans in detail with the patient. All his questions were answered. [id number]/CPS #: [id number] ALVIN
[~2018-09-12] MED LIST: Acetaminophen TAB* 325 MG PO PRN; Buffered Lidocaine 1% SYRIN* 1 ML/SYRINGE INTRADERM ONE; Dexamethasone IV* 4 MG/ML 1 ML (4 MG) IV SLOW PU ONE; Dexamethasone IV* 4 MG/ML 1 ML (4 MG) ONE; EPHEDrine (Pressors)* 50 MG/ML VIAL ONE; Famotidine IV* 10 MG/ML 2 ML (20 mg) IV ONE; Famotidine IV* 10 MG/ML 2 ML (20 mg) ONE; HYDROcodone/ACETAMIN 5-325 MG* 1 TAB PO PRN; Iohexol 180 (CONTRAST) 10 ML SDV IV ONE; Ketorolac INJ* 30 MG/ML 1 ML VIAL IV PRN; Lactated Ringers 1000 ML Bag* 1,000 ML IV SCH; Lidocaine 2% PF * 5 ML VIAL ONE; Morphine 4 MG/ML VIAL (1 ml) 4 MG/ML VIAL ONE; Naloxone* 0.4 MG/ML 1 ML VIAL IV PRN; Ondansetron INJ* 2 MG/ML VIAL ONE; PROCHLORPERAZINE INJ 5 MG/ML 2 ML VIAL IV PRN; Propofol* 10 MG/ML 20 ML BTL ONE; ceFAZolin 2 GM in NS PREMIX(*) 2 GM/100 ML BAG IVPB ONE; fentaNYL* 50 MCG/ML 2 ML VIAL (100 MCG VIAL) IV PRN; fentaNYL* 50 MCG/ML 2 ML VIAL (100 MCG VIAL) ONE; oxyCODONE/Acetamin 5/325 MG* TAB PO PRN
[2018-09-12 12:12] VITALS: BP 139/66
--- NOTE | 2018-09-12 13:09 | OP ---
CC: Dr. Lynch OPERATIVE REPORT: DATE OF OPERATION: 09/12/18 DATE OF : 56 SURGEON: Dr. Blackwell. ANESTHESIOLOGIST: Dr. Howard Leung. ANESTHESIA: General. PRE-OP DIAGNOSES: 1. Right renal colic. 2. Proximal right ureteral calculus. POST-OP DIAGNOSES: 1. Right renal colic. 2. Proximal right ureteral calculus. OPERATIVE PROCEDURE: 1. Cystoscopy. 2. Right ureteroscopy, laser lithotripsy, and extraction of right ureteral calculus. 3. Right retrograde pyelography and insertion of right ureteral stent (6 Azerbaijani ). INDICATIONS FOR PROCEDURE: Mr. Peoples is a 57-year-old white male who presented to the emergency room 4 days ago with symptoms of right renal colic and was noted on noncontrast CT of the abdomen and pelvis to have a 7 mm calculus in the proximal right ureter associated with mild hydronephrosis. The patient was managed with pain medications and referred to our office where he was evaluated. Because of the size of the stone and its location, he was scheduled today to undergo a placement of right ureteral stent and possible right ureteroscopy and laser lithotripsy. The patient presented several hours prior to his planned admission with severe right renal colic and he was writhing in pain. It was difficult to control his pain with medications. He is taken to the operating room on an urgent basis for endoscopic procedure. PATHOLOGY AT CYSTOSCOPY: The penile and bulbar urethrae looked normal. The prostatic urethra was short and open. Examination of the bladder showed normal mucosa. There were no suspicious bladder lesions seen. No calculi or diverticula were noted. The ureteral orifices looked normal. Upon right ureteroscopy, there was a 6 mm calculus that had the gross appearance of a calcium oxalate stone located in the mid right ureter. Retrograde pyelography showed mild hydronephrosis. DESCRIPTION OF PROCEDURE: After successful general anesthesia, the patient was placed in the lithotomy position and was prepped and draped for a cystoscopy. Cystoscopy was performed, the bladder was carefully inspected and the above findings were noted. A flexible-tip guidewire was then introduced under fluoroscopy guidance and positioned in the area of the renal pelvis. The calculus could not be visualized on fluoroscopy. Decision was made to proceed with a ureteroscopy. A size 6.5 [place]ijani tapered semi-rigid ureteroscope was then introduced inside the bladder. A flexible-tip basket was introduced through the port of the ureteroscope and its flexible tip was introduced inside the right ureteral orifice alongside the guidewire. That allowed the atraumatic introduction of the ureteroscope inside the ureter. The ureteroscope was advanced without difficulty until the mid ureter where the stone was identified. The stone was then engaged with the basket and was pulled down without difficulty until the level of the distal ureter. A 550-micron laser fiber was then introduced through the other port of the ureteroscope. With the stone engaged and stabilized in the basket, it was then broken with the laser energy into 2 fragments. The fragments were then extracted with the basket and sent for stone analysis. Inspection of the ureteral wall showed no injury with intact mucosa. Right retrograde pyelography was then performed and a size 6 Azerbaijani stent was then placed with the proximal end coiling in the renal pelvis and the distal end coiling inside the bladder. There was good drainage of contrast from the kidney and no extravasation. The patient tolerated the procedure well and left the operating room in good condition. The plan is to keep the stent in place for 7 to 9 days. It will be removed in the office under local anesthesia. [id number]/CPS #: [id number] MTDD
== END | disposition home or self-care (01) ==
LOC: OR 09:33
PROVIDERS: ATTEND Urology
PROC: 0TC68ZZ Extirpation of Matter from Right Ureter, Via Natural or Artificial Opening Endoscopic (ICD-10-PCS; principal; 2018-09-12 12:30)
DX: N20.1 Calculus of ureter (principal); N23 Unspecified renal colic; N13.30 Unspecified hydronephrosis
CPT/HCPCS: 74420; 82365; 88300; C1876; J0690; J1100; J2270; J2405; J2704; J3010